=== PATIENT | female | born 1970 | race Asian ===

== ENCOUNTER 2023-01-25 11:38 | Emergency (ER) | payer OTHER ==
[2023-01-25] MEDS ORDERED: SODIUM CHLORIDE 0.9% 1,000 ML IV STA (13:57)
[2023-01-25] MEDS ORDERED: HYDROmorphone 1 MG/ML CARPUJECT IVP STA (13:57)
--- NOTE | 2023-01-25 14:05 | ED Physician Documentation ---
History of Present Illness - Stated complaint Stated Complaint: FEMALE , BACK PX - Chief complaint Chief Complaint: Abd Pain - Additonal information Additional information: 52-year-old female presents to the emergency department for evaluation of low back pain, pelvic pain and concerns of possible renal failure/urinary tract infection. This patient was taking a sabbatical in [place] last year when she was diagnosed with endocervical adenocarcinoma. She did receive chemoradiation for this the last time was in September 2022. She did receive vaginal brachytherapy in early October 2022. While in [place] the patient did develop bilateral hydronephrosis. She received bilateral nephrostomy tubes in June 2022. These were removed in October 2022. Subsequently the patient developed a urinary tract infection, fungal septicemia and kidney failure in November 2022. She was hospitalized again in [place] and had a right nephrostomy tube placed. She did see Dr. Aguilar a urologist at [facility] last week. He did recommend capping the nephrostomy tube to trial a voiding. He did schedule nuclear medicine follow-up imaging which is scheduled for next week. On Tuesday, January 23 the patient kept her nephrostomy tube for 5 hours. While capped she began to have increased pain and fullness in her low back and pelvic region and have increased pain therefore she open the Isabel up to drain but the pain has not resolved. She has had no fevers. She was seen by the [facility] oncologist Dr. Fuentes Today who requested she come to the ER to get a urinalysis as well as a bladder scan. Patient reports to me she is concerned that she could have a urinary tract infection or recurrence of her renal failure Review of Systems Constitutional: denies: Fever, Chills Throat: reports: Reviewed and negative Cardiac: reports: Reviewed and negative Respiratory: reports: Reviewed and negative GI: reports: Abdominal Pain, Other (Right-sided nephrostomy tube) : reports: Dysuria Skin: reports: Reviewed and negative PD PAST MEDICAL HISTORY - Past Medical History Past Medical History: Yes Cardiovascular: None Respiratory: None Neuro: None Endocrine/Autoimmune: None GI: None HEALTH POLICY MANAGER: Other : Other HEENT: None Psych: None Musculoskeletal: None Derm: None Other Past Medical History: NEPHROSTOMY TUBE.....INTERNAL VAGINAL RADIATION... - Past Surgical History Past Surgical History: Yes General: Other - Present Medications Home Medications: Ambulatory Orders Medication Instructions Recorded Confirmed Ciprofloxacin HCl [Cipro] 500 mg PO BID #20 tablet 01/25/23 Pyridoxine HCl (Vitamin B6) 25 mg PO DAILY 01/25/23 01/25/23 [Vitamin B-6] Tamsulosin HCl [Flomax] 0.4 mg PO DAILY PM 01/25/23 01/25/23 - Allergies Allergies/Adverse Reactions: Allergies Allergy/AdvReac Type Severity Reaction Status Date / Time cefepime Allergy Anaphylaxis Verified 01/25/23 11:55 erythromycin base Allergy Nausea Verified 01/25/23 11:55 shellfish derived Allergy Anaphylaxis Verified 01/25/23 11:55 surgical silk tape Allergy Hives Uncoded 01/25/23 11:55 - Social History Does the pt smoke?: No Smoking Status: Never smoker Does the pt drink ETOH?: No Does the pt have substance abuse?: No - Immunizations Immunizations are current?: Yes - POLST Patient has POLST: No PD ED PE NORMAL - General General: Alert and oriented X 3, Well developed/nourished. No: No acute distress (Peers uncomfortable and in pain) - HEENT HEENT: Atraumatic, Moist mucous membranes - Neck Neck: Supple, no meningeal sign - Cardiac Cardiac: RRR, No murmur - Respiratory Respiratory: No respiratory distress, Clear bilaterally - Abdomen Abdomen: Normal bowel sounds, Soft. No: Non tender (Tenderness of the suprapubic region. Mild right posterior flank tenderness. Right nephrostomy tube draining clear yellow urine with mild amount of sediment) - Back Back: No CVA TTP - Derm Derm: Normal color, Warm and dry - Extremities Extremities: No deformity - Neuro Neuro: Alert and oriented X 3, senior scheduler 2-12 intact Eye Opening: Spontaneous Motor: Obeys Commands Verbal: Oriented GCS Score: 15 - Psych Psych: Normal mood Results - Vitals Vitals: Vital Signs - 24 hr 01/25/23 01/25/23 01/25/23 11:53 13:15 13:18 Temperature 36.6 C Heart Rate 89 73 Respiratory 16 18 19 Rate Blood Pressure 109/70 100/73 O2 Saturation 100 100 01/25/23 01/25/23 01/25/23 14:09 14:30 15:27 Temperature Heart Rate 72 71 Respiratory 17 17 17 Rate Blood Pressure 108/69 O2 Saturation 100 100 01/25/23 01/25/2301/25/23 15:42 16:33 17:00 Temperature Heart Rate 88 89 90 Respiratory 17 19 17 Rate Blood Pressure 114/72 123/78 123/78 O2 Saturation 100 100 100 01/25/23 17:44 Temperature Heart Rate Respiratory 16 Rate Blood Pressure O2 Saturation Oxygen O2 Source Room air - Labs Labs: Laboratory Tests 01/25/23 01/25/23 01/25/23 13:45 14:20 14:26 WBC 4.5 L RBC 2.70 L Hgb 8.5 L Hct 26.4 L MCV 97.8 MCH 31.5 H MCHC 32.2 RDW 14.9 Plt Count 206 MPV 10.1 Neut # (Auto) 3.2 Lymph # (Auto) 0.5 L [place] # (Auto) 0.5 Eos # (Auto) 0.3 Baso # (Auto) 0.0 Absolute Nucleated RBC 0.00 Nucleated RBC % 0.0 Sodium 140 Potassium 4.0 Chloride 106 Carbon Dioxide 23 Anion Gap 11.0 BUN 22 H Creatinine 1.6 H Estimated GFR (MDRD) 34 L Glucose 91 Calcium 9.0 Total Bilirubin 0.3 AST 18 ALT 15 Alkaline Phosphatase 69 Total Protein 6.6 L Albumin 3.2 Globulin 3.4 Albumin/Globulin Ratio 0.9 L Lipase 53 H Urine Color YELLOW Urine Clarity SL. CLOUDY Urine pH 6.0 Ur Specific [place] 1.025 Urine Protein 100 H Urine Glucose (UA) NEGATIVE Urine Ketones NEGATIVE Urine Occult Blood MODERATE H Urine Nitrite POSITIVE H Urine Bilirubin NEGATIVE Urine Urobilinogen 0.2 (NORMAL) Ur Leukocyte Esterase LARGE H Urine RBC 6-10 H Urine WBC >25 H Urine WBC Clumps PRESENT Ur Squamous Epith Cells RARE Squamous Urine Bacteria Moderate H Ur Microscopic Review INDICATED Urine Culture Comments INDICATED - Rads (name of study) CT abd w Relevant Findings:: Final report received (Expected positioning of the right nephrostomy tube and bilateral ureteral stents. No CT evidence of bowel nephritis. Appendix not seen. No evidence of appendicitis) PD Medical Decision Making - ED course Complexity details: reviewed results, re-evaluated patient, considered differential, d/w patient ED course: 52-year-old female who has a history of endocervical cancer last receiving chemotherapy in September 2022 and radiation in October 2022 presents to the emergency department for evaluation of low back pain, right flank pain and dysuria. She does have a history of bilateral hydronephrosis. She does have a right nephrostomy tube in place as well as bilateral ureter stents. She was seen last week by Dr. Aguilar, urology associate with [facility]. She is scheduled to have urology follow-up and repeat scanning this upcoming week. After being seen last week he did recommend that she try capping her nephrostomy tube to see if she could void via her bladder. She only tolerated the capping for about 5 hours before she developed the pain. She was seen today by [place] [facility] [place]cologist who recommended she come to the ER to be evaluated for urinary tract infection. Initially patient had no residual on bladder scan. She was afebrile without hypotension or tachycardia. Did obtain a CBC, electrolytes and urinalysis. She has no leukocytosis. She is noted to be modestly anemic with a hemoglobin of 8.5 but does not meet threshold criteria. Patient reports to me she has been told she has anemia in the past and has required blood transfusions for this. Her renal function shows some mild acute kidney injury. BUN is 22 and creatinine is 1.6. She does report a history of kidney failure in November due to hydronephrosis. This may be acute on chronic. Her urinalysis was consistent with infection. Subsequently a CT of the abdomen was completed. There was expected positioning of the right nephrostomy and bilateral ureter stents. There was no CT evidence for nephritis. Subsequently attempted to speak with Dr. Aguilar her urologist who was unfortunately in surgery. Subsequently I did speak with CHRISTIANE Jackson associate with Dr. Aguilar and urology clinic. I discussed with him my concern that patient may require transfer giving indwelling hardware but he reported that as she was hemodynamically stable without fever or leukocytosis they would not consider removing the hardware and replacing it until she had had antibiotics. He felt she was safe and appropriate for outpatient treatment therefore we will start the patient on Cipro 500 mg twice daily for the next 10 days. I discussed this plan with the patient and her partner at the bedside and they are comfortable with the plan to be treated as an outpatient. The usual emergent return precautions for worsening symptoms were discussed. Departure - Departure Disposition: 01 Home, Self Care Clinical Impression: Ureteral stent present, Acute kidney injury, History of cervical cancer, History of hydronephrosis Urinary tract infection Qualifiers: Urinary tract infection type: site unspecified Hematuria presence: without hematuria Qualified Code(s): N39.0 - Urinary tract infection, site not specified Prescriptions: Ciprofloxacin HCl [Cipro] 500 mg PO BID #20 tablet Comments: Adriana golden came to the emergency department because you have been having some low back pain and right flank pain. You do have a history of hydronephrosis as well as bilateral ureter stents and a right nephrostomy tube in place. Your urine today is consistent with infection. I did speak with CHRISTIANE Sneed, working with your urologist Dr. Aguilar And he recommended starting you on ciprofloxacin. Please call the urology clinic to discuss this ED visit and arrange sooner follow-up. If you find that despite taking the antibiotics you are having increase or wors ening low back pain, develop any fevers, have nausea or vomiting you must return immediately to the emergency department. It is important you stay well-hydrated and drink plenty of water. Your labs today do show that you are anemic with a hemoglobin of 8.5 however you do not meet the threshold for transfusion. Your BUN was 22 and your creatinine was 1.6. Based on your history I suspect that this may be your baseline.
[2023-01-25 14:06] LABS: BILIRUBIN,URINE NEGATIVE (NEGATIVE); CLARITY,URINE SL. CLOUDY (CLEAR); GLUCOSE, URINE (UA) NEGATIVE (NEGATIVE); KETONES,URINE (UA) NEGATIVE (NEGATIVE); LEUKOCYTE ESTERASE, URINE LARGE (NEGATIVE); NITRITE,URINE POSITIVE (NEGATIVE); OCCULT BLOOD,URINE MODERATE (NEGATIVE); PROTEIN,URINE 100 mg/dL (NEGATIVE); UROBILINOGEN,URINE 0.2 (NORMAL) E.U./dL (NORMAL)
[2023-01-25] MEDS ORDERED: iohexoL-300 100 ML VIAL ONE ×2 (14:13→14:29)
[2023-01-25 14:30] LABS: BACTERIA,URINE Moderate /HPF (None Seen); SQUAMOUS EPITHELIAL CELL,UR RARE Squamous (<= Few); WBC CLUMPS,URINE PRESENT; WBC,URINE >25 /HPF (0-5)
[2023-01-25 14:33] LABS: BASOPHILS % (AUTO) 0.7 %; EOSINOPHILS # (AUTO) 0.3 10^3/uL (0.0-0.7); EOSINOPHILS % (AUTO) 7.3 %; HCT - HEMATOCRIT 26.4 % (37.0-47.0); HGB - HEMOGLOBIN 8.5 g/dL (12.0-16.0); LYMPHOCYTES # (AUTO) 0.5 10^3/uL (1.5-3.5); LYMPHOCYTES % (AUTO) 10.6 %; MEAN CORPUSCULAR HEMOGLOBIN 31.5 pg (27.0-31.0); MEAN CORPUSCULAR HGB CONC 32.2 g/dL (32.0-36.0); MEAN CORPUSCULAR VOLUME 97.8 fL (81.0-99.0); MEAN PLATELET VOLUME 10.1 fL (7.9-10.8); MONOCYTES # (AUTO) 0.5 10^3/uL (0.0-1.0); MONOCYTES % (AUTO) 10.2 %; NEUTROPHILS # (AUTO) 3.2 10^3/uL (1.5-6.6); PLT - PLATELET COUNT 206 10^3/uL (130-450); RED CELL DISTRIBUTION WIDTH 14.9 % (12.0-15.0); WHITE BLOOD COUNT 4.5 x10^3/uL (4.8-10.8)
[2023-01-25] MEDS ORDERED: CIPROFLOXACIN 400 MG/200 ML 400 MG/200 ML BAG IV STA (14:44)
[2023-01-25 14:51] LABS: ALBUMIN 3.2 g/dL (3.2-5.5); ALBUMIN/GLOBULIN RATIO 0.9 (1.0-2.2); BILIRUBIN,TOTAL 0.3 mg/dL (0.2-1.0); CREATININE 1.6 mg/dL (0.4-1.0); TOTAL PROTEIN 6.6 g/dL (6.7-8.2)
[2023-01-25] MEDS ORDERED: KETOROLAC 30 MG/ML VIAL IVP STA (15:11)
--- NOTE | 2023-01-25 15:55 | CT Report ---
PROCEDURE: ABDOMEN/PELVIS W INDICATIONS: right nephrostomy tube; ? pyelo CONTRAST: 100ml Omnipaque 300 TECHNIQUE: After the administration of intravenous contrast, 5 mm thick sections acquired from the diaphragms to the symphysis. 5 mm thick coronal and sagittal reformats were acquired. For radiation dose reducti on, the following was used: automated exposure control, adjustment of mA and/or kV according to jean paul ent size. COMPARISON: None FINDINGS: Image quality: Excellent. Lung bases and heart: Unremarkable. Liver: No solid mass. Gallbladder and biliary tree: The gallbladder is contracted. No biliary ductal dilatation. Spleen: No splenomegaly. Pancreas: No pancreatic ductal dilation. Adrenals: No adrenal nodule. Kidneys and ureters: No hydronephrosis. Moderate left renal atrophy. No renal cystic lesion which req uires follow up. No solid mass. Right nephrostomy is appropriately positioned. Bilateral ureteral marilee nts are appropriately positioned. Bowel and peritoneum: No bowel distension. No pathologic free fluid. Appendix not seen. No evidence o f appendicitis. Lymph nodes: No central or retroperitoneal adenopathy. Vessels: No infrarenal aortic aneurysm. PELVIS Reproductive organs: Unremarkable. Bladder: No abnormal wall thickening, accounting for underdistension. Pelvic lymph nodes: No pelvic adenopathy by size criteria. Bones: No aggressive osseous abnormality. Other: No significant ventral or inguinal hernia. IMPRESSION: 1. Expected positioning of right nephrostomy and bilateral ureteral stents. 2. No CT evidence of bowel nephritis. Correlation with urinalysis is recommended. 3. Appendix not seen. No evidence of appendicitis. Reviewed by: Eamon Oconnell MD on 01/25/2023 3:54 PM PDT Approved by: Eamon Oconnell MD on 01/25/2023 3:54 PM PDT Station ID: [id number]
[2023-01-25] MEDS ORDERED: iohexoL-300 100 ML VIAL IVP ONE (16:49)
[2023-01-25 18:06] VITALS: BP 101/61
== END 2023-01-25 18:19 | disposition home or self-care (01) ==
LOC: ED 11:38
DX: N39.0 Urinary tract infection, site not specified (principal); Z96.0 Presence of urogenital implants; Z86.03 Personal history of neoplasm of uncertain behavior
CPT/HCPCS: 36415; 51798; 74177; 80053; 81001; 83690; 85025; 87040; 87086; 96365; 96375; 99284; J1170; Q9967; 81003; 87077; 87181

== ENCOUNTER 2023-05-05 17:17 | Outpatient (CLI) | payer OTHER | END 2023-05-05 23:59 | disposition home or self-care (01) | LOC: LAB 17:17 | PROVIDERS: ATTEND Physician Assistant Medical | DX: N39.0 Urinary tract infection, site not specified (principal) | CPT/HCPCS: 87086 ==

== ENCOUNTER 2023-05-06 12:18 | Outpatient (CLI) | payer OTHER ==
[2023-05-06 14:53] LABS: ALBUMIN/GLOBULIN RATIO 1.4 (1.0-2.2); BILIRUBIN,TOTAL 0.4 mg/dL (0.2-1.0); CALCIUM 9.5 mg/dL (8.5-10.3); CREATININE 1.7 mg/dL (0.6-1.3); POTASSIUM 4.8 mmol/L (3.5-4.5); TOTAL PROTEIN 6.9 g/dL (6.4-8.9)
== END 2023-05-06 12:19 | disposition home or self-care (01) ==
LOC: LAB.S 12:18
PROVIDERS: ATTEND Physician Assistant Medical
DX: R25.2 Cramp and spasm (principal)
CPT/HCPCS: 36415; 80053; 83735

== ENCOUNTER 2023-05-16 10:10 | Outpatient (CLI) | payer OTHER | END 2023-05-16 10:11 | disposition home or self-care (01) | LOC: LAB.S 10:10 | PROVIDERS: ATTEND Student in an Organized Health Care Education/Training Program | DX: N13.30 Unspecified hydronephrosis (principal); R10.31 Right lower quadrant pain | CPT/HCPCS: 36415; 80048; 87077; 87086; 87181 ==

== ENCOUNTER 2023-05-16 13:21 | Emergency (ER) | payer OTHER ==
[2023-05-16 13:49] LABS: BILIRUBIN,URINE NEGATIVE (NEGATIVE); GLUCOSE, URINE (UA) NEGATIVE (NEGATIVE); KETONES,URINE (UA) NEGATIVE (NEGATIVE); LEUKOCYTE ESTERASE, URINE LARGE (NEGATIVE); NITRITE,URINE POSITIVE (NEGATIVE); OCCULT BLOOD,URINE SMALL (NEGATIVE); PH,URINE 5.5 PH (5.0-7.5); PROTEIN,URINE 100 mg/dL (NEGATIVE); UROBILINOGEN,URINE 1 (NORMAL) E.U./dL (NORMAL)
[2023-05-16 13:52] LABS: BASOPHILS % (AUTO) 0.6 %; EOSINOPHILS # (AUTO) 0.2 10^3/uL (0.0-0.7); EOSINOPHILS % (AUTO) 4.1 %; HCT - HEMATOCRIT 30.2 % (37.0-47.0); HGB - HEMOGLOBIN 9.7 g/dL (12.0-16.0); LYMPHOCYTES # (AUTO) 0.7 10^3/uL (1.5-3.5); LYMPHOCYTES % (AUTO) 13.2 %; MEAN CORPUSCULAR HEMOGLOBIN 34.2 pg (27.0-31.0); MEAN CORPUSCULAR HGB CONC 32.1 g/dL (32.0-36.0); MEAN CORPUSCULAR VOLUME 106.3 fL (81.0-99.0); MEAN PLATELET VOLUME 8.9 fL (7.9-10.8); MONOCYTES # (AUTO) 0.4 10^3/uL (0.0-1.0); MONOCYTES % (AUTO) 7.6 %; NEUTROPHILS # (AUTO) 3.8 10^3/uL (1.5-6.6); NEUTROPHILS % (AUTO) 74.1 %; PLT - PLATELET COUNT 279 10^3/uL (130-450); RED BLOOD COUNT 2.84 10^6/uL (4.20-5.40); RED CELL DISTRIBUTION WIDTH 14.3 % (12.0-15.0); WHITE BLOOD COUNT 5.1 x10^3/uL (4.8-10.8)
[2023-05-16 13:55] LABS: BACTERIA,URINE Few /HPF (None Seen); CLARITY,URINE SL. CLOUDY (CLEAR); RBC,URINE 0-5 /HPF (0-5); SQUAMOUS EPITHELIAL CELL,UR FEW Squamous (<= Few); WBC,URINE >25 /HPF (0-5)
[2023-05-16 14:14] LABS: ALBUMIN 4.3 g/dL (3.2-5.5); ALBUMIN/GLOBULIN RATIO 1.6 (1.0-2.2); BILIRUBIN,TOTAL 0.6 mg/dL (0.2-1.0); CALCIUM 9.7 mg/dL (8.5-10.3); CREATININE 1.5 mg/dL (0.6-1.3); POTASSIUM 3.8 mmol/L (3.5-4.5)
--- OUTSIDE RECORDS SUMMARY | 2023-05-16 14:26 | EXTERNAL MEDICAL SUMMARY RPT | Continuity of Care Document ---
Author Name Unknown Address [address] [place] [address] Phone Organization [facility] Address [address] [place] [address] Phone Care Team Providers Care Tenter Name Role Phone Unavailable Unavailable Unavailable Mari Mendez, Ryan Unavailable Unavailable Nurse, Mark[facility] Unavailable Unavailab rosanna Ryder Pa-C, Mercedes Unavailable Unavailable José Webber, Jihan Unavailable Unavailable Medications date description facility 2023-04-12 00:00 [facility]ansetron [facility] [place] 2023-04-12 00:00 ondansetron [facility] [place] 2023-04-12 00:00 ondansetron [facility] [place] 2023-04-12 00:00 ondansetron [facility] [place] 2023-04-09 00:00 oxycodone [facility] 2023-04-11 00:00 oxycodone [facility] 2023-04-12 00:00 oxycodone [facility] 2023-05-07 00:00 oxycodone [facility] 2023-05-09 00:00 oxycodone [facility] 2023-05-09 00:00 oxycodone [facility] 2023-04-09 00:00 lorazepam [facility] 2023-04-11 00:00 lorazepam [facility] 2023-04-12 00:00 lorazepam [facility] 2023-05-07 00:00 lorazepam [facility] 2023-05-09 00:00 lorazepam [facility] [place] 2023-05-09 00:00 lorazepam [facility] 2023-04-12 00:00 ciprofloxacin hcl [facility] 2023-04-12 00:00 ciprofloxacin hcl [facility] 2023-04-12 00:00 ciprofloxacin hcl [facility] 2023-04-12 00:00 ciprofloxacin hcl [facility] 2023-04-12 00:00 ondansetron [facility] [place] 2023-04-12 00:00 ondansetron [facility] [place] 2023-04-12 00:00 ondansetron [facility] [place] 2023-04-12 00:00 ondansetron [facility] [place] 2023-04-09 00:00 oxycodone [facility] [place] 2023-04-11 00:00 oxycodone [facility] [place] 2023-04-12 00:00 oxycodone [facility] [place] 2023-05-07 00:00 oxycodone [facility] [place] 2023-05-09 00:00 oxycodone [facility] 2023-05-09 00:00 oxycodone [facility] 2023-04-09 00:00 phenazopyridine [facility] 2023-04-11 00:00 phenazopyridine [facility] 2023-04-12 00:00 phenazopyridine [facility] 2023-05-07 00:00 phenazopyridine [facility] 2023-05-09 00:00 phenazopyridine [facility] [place] 2023-05-09 00:00 phenazopyridine [facility] [place] 2023-04-09 00:00 lorazepam [facility] [place] 2023-04-11 00:00 lorazepam [facility] [place] 2023-04-12 00:00 lorazepam [facility] 2023-05-07 00:00 lorazepam [facility] 2023-05-09 00:00 lorazepam [facility] 2023-05-09 00:00 lorazepam [facility] 2023-05-07 00:00 estradiol-norethindrone acet [facility] [place] 2023-05-09 00:00 estradiol-norethindrone acet [facility] 2023-05-09 00:00 estradiol-norethindrone acet [facility] [place] 2023-04-09 00:00 tamsulosin [facility] [place] 2023-04-11 00:00 tamsulosin [facility] 2023-04-12 00:00 tamsulosin [facility] 2023-05-07 00:00 tamsulosin [facility] 2023-05-09 00:00 tamsulosin [facility] 2023-05-09 00:00 tamsulosin [facility] 2023-04-09 00:00 phenazopyridine [facility] 2023-04-11 00:00 phenazopyridine [facility] 2023-04-12 00:00 phenazopyridine [facility] [place] 2023-05-07 00:00 phenazopyridine [facility] 2023-05-09 00:00 phenazopyridine [facility] [place] 2023-05-09 00:00 phenazopyridine [facility] [place] 2023-04-09 00:00 lorazepam [facility] [place] 2023-04-11 00:00 lorazepam [facility] [place] 2023-04-12 00:00 lorazepam [facility] [place] 2023-05-07 00:00 lorazepam [facility] [place] 2023-05-09 00:00 lorazepam [facility] [place] 2023-05-09 00:00 lorazepam [facility] [place] 2023-04-12 00:00 ciprofloxacin hcl [facility] [place] 2023-04-12 00:00 ciprofloxacin hcl [facility] [place] 2023-04-12 00:00 ciprofloxacin hcl [facility] [place] 2023-04-12 00:00 ciprofloxacin hcl [facility] [place] 2023-05-07 00:00 estradiol-norethindrone acet [facility] [place] 2023-05-09 00:00 estradiol-norethindrone acet [facility] [place] 2023-05-09 00:00 estradiol-norethindrone acet [facility] [place] 2023-04-09 00:00 oxycodone [facility] [place] 2023-04-11 00:00 oxycodone [facility] [place] 2023-04-12 00:00 oxycodone [facility] [place] 2023-05-07 00:00 oxycodone [facility] [place] 2023-05-09 00:00 oxycodone [facility] [place] 2023-05-09 00:00 oxycodone [facility] [place] 2023-04-12 00:00 ciprofloxacin hcl [facility] [place] 2023-04-12 00:00 ciprofloxacin hcl [facility] [place] 2023-04-12 00:00 ciprofloxacin hcl [facility] [place] 2023-04-12 00:00 ciprofloxacin hcl [facility] [place] 2023-04-12 00:00 ondansetron [facility] 2023-04-12 00:00 ondansetron [facility] 2023-04-12 00:00 ondansetron [facility] 2023-04-12 00:00 ondansetron [facility] 2023-04-12 00:00 ciprofloxacin hcl [facility] 2023-04-12 00:00 ciprofloxacin hcl [facility] [place] 2023-04-12 00:00 ciprofloxacin hcl [facility] 2023-04-12 00:00 ciprofloxacin hcl [facility] 2023-04-09 00:00 oxybutynin chloride [facility] [place] 2023-04-11 00:00 oxybutynin chloride [facility] [place] 2023-04-12 00:00 oxybutynin chloride [facility] [place] 2023-05-07 00:00 oxybutynin chloride [facility] [place] 2023-05-09 00:00 oxybutynin chloride [facility] [place] 2023-05-09 00:00 oxybutynin chloride [facility] [place] 2023-04-09 00:00 phenazopyridine [facility] [place] 2023-04-11 00:00 phenazopyridine [facility] 2023-04-12 00:00 phenazopyridine [facility] 2023-05-07 00:00 phenazopyridine [facility] 2023-05-09 00:00 phenazopyridine [facility] [place] 2023-05-09 00:00 phenazopyridine [facility] 2023-04-09 00:00 tamsulosin [facility] [place] 2023-04-11 00:00 tamsulosin [facility] [place] 2023-04-12 00:00 tamsulosin [facility] [place] 2023-05-07 00:00 tamsulosin [facility] [place] 2023-05-09 00:00 tamsulosin [facility] [place] 2023-05-09 00:00 tamsulosin [facility] [place] 2023-04-09 00:00 lorazepam [facility] [place] 2023-04-11 00:00 lorazepam [facility] [place] 2023-04-12 00:00 lorazepam [facility] [place] 2023-05-07 00:00 lorazepam [facility] [place] 2023-05-09 00:00 lorazepam [facility] [place] 2023-05-09 00:00 lorazepam [facility] [place] 2023-05-07 00:00 estradiol-norethindrone acet [facility] 2023-05-09 00:00 estradiol-norethindrone acet [facility] 2023-05-09 00:00 estradiol-norethindrone acet [facility] [place] 2023-04-09 00:00 oxybutynin chloride [facility] 2023-04-11 00:00 oxybutynin chloride [facility] [place] 2023-04-12 00:00 oxybutynin chloride [facility] 2023-05-07 00:00 oxybutynin chloride [facility] [place] 2023-05-09 00:00 oxybutynin chloride [facility] 2023-05-09 00:00 oxybutynin chloride [facility] [place] 2023-04-09 00:00 tamsulosin [facility] 2023-04-11 00:00 tamsulosin [facility] 2023-04-12 00:00 tamsulosin [facility] 2023-05-07 00:00 tamsulosin [facility] 2023-05-09 00:00 tamsulosin [facility] 2023-05-09 00:00 tamsulosin [facility] 2023-04-12 00:00 ondansetron [facility] [place] 2023-04-12 00:00 ondansetron [facility] 2023-04-12 00:00 ondansetron [facility] 2023-04-12 00:00 ondansetron [facility] [place] 2023-04-09 00:00 oxycodone [facility] 2023-04-11 00:00 oxycodone [facility] 2023-04-12 00:00 oxycodone [facility] [place] 2023-05-07 00:00 oxycodone [facility] 2023-05-09 00:00 oxycodone [facility] 2023-05-09 00:00 oxycodone [facility] [place] 2023-04-09 00:00 phenazopyridine [facility] [place] 2023-04-11 00:00 phenazopyridine [facility] 2023-04-12 00:00 phenazopyridine [facility] [place] 2023-05-07 00:00 phenazopyridine [facility] 2023-05-09 00:00 phenazopyridine [facility] 2023-05-09 00:00 phenazopyridine [facility] 2023-05-07 00:00 estradiol-norethindrone acet [facility] [place] 2023-05-09 00:00 estradiol-norethindrone acet [facility] 2023-05-09 00:00 estradiol-norethindrone acet [facility] [place] 2023-04-09 00:00 oxybutynin chloride [facility] [place] 2023-04-11 00:00 oxybutynin chloride [facility] [place] 2023-04-12 00:00 oxybutynin chloride [facility] [place] 2023-05-07 00:00 oxybutynin chloride [facility] [place] 2023-05-09 00:00 oxybutynin chloride [facility] 2023-05-09 00:00 oxybutynin chloride [facility] [place] 2023-04-09 00:00 oxybutynin chloride [facility] [place] 2023-04-11 00:00 oxybutynin chloride [facility] [place] 2023-04-12 00:00 oxybutynin chloride [facility] [place] 2023-05-07 00:00 oxybutynin chloride [facility] [place] 2023-05-09 00:00 oxybutynin chloride [facility] [place] 2023-05-09 00:00 oxybutynin chloride [facility] [place] 2023-04-09 00:00 tamsulosin [facility] [place] 2023-04-11 00:00 tamsulosin [facility] [place] 2023-04-12 00:00 tamsulosin [facility] [place] 2023-05-07 00:00 tamsulosin [facility] [place] 2023-05-09 00:00 tamsulosin [facility] [place] 2023-05-09 00:00 tamsulosin [facility] [place] Problems date description facility 2023-04-08 00:00 Spasm of bladder [facility] [place] 2023-04-08 00:00 Spasm of bladder [facility] [place] 2023-04-08 00:00 Spasm of bladder [facility] [place] 2023-04-08 00:00 Spasm of bladder [facility] [place] 2023-04-08 00:00 Other specified diso rders of bladder [facility] [place] 2023-04-08 00:00 Other specified diso rders of bladder [facility] [place] 2023-04-08 00:00 Other specified diso rders of bladder [facility] [place] 2023-04-08 00:00 Other specified diso rders of bladder [facility] [place] 2023-04-08 00:00 Dysuria [facility] [place] 2023-04-08 00:00 Dysuria [facility] [place] 2023-04-08 00:00 Dysuria [facility] [place] 2023-04-08 00:00 Dysuria [facility] [place] 2023-05-05 00:00 Cramp [facility] [place] 2023-05-05 00:00 Cramp [facility] [place] 2023-05-05 00:00 Cramp [facility] [place] 2023-05-05 00:00 Cramp of limb [facility] [place] 2023-05-05 00:00 Cramp of limb [facility] [place] 2023-05-05 00:00 Cramp of limb [facility] [place] 2023-05-05 00:00 Cramp and spasm [facility] [place] 2023-05-05 00:00 Cramp and spasm [facility] [place] 2023-05-05 00:00 Cramp and spasm [facility] [place] Procedures date description facility 2023-04-08 00:00 Visit Code Hold [facility] [place] 2023-04-08 00:00 Visit Code Hold [facility] [place] 2023-04-08 00:00 Visit Code Hold [facility] [place] 2023-04-08 00:00 Visit Code Hold [facility] [place] 2023-05-05 00:00 Visit Code Hold [facility] [place] 2023-05-05 00:00 Visit Code Hold [facility] [place] 2023-05-05 00:00 Visit Code Hold [facility] [place] 2023-05-05 00:00 COMPREHENSIVE METABOLIC PANEL W alk[facility] [place] 2023-05-05 00:00 COMPREHENSIVE METABOLIC PANEL W alk[facility] [place] 2023-05-05 00:00 COMPREHENSIVE METABOLIC PANEL [facility] [place] 2023-04-08 00:00 POC URINALYSIS DIP [facility] [place] 2023-04-08 00:00 POC URINALYSIS DIP [facility] [place] 2023-04-08 00:00 POC URINALYSIS DIP [facility] [place] 2023-04-08 00:00 POC URINALYSIS DIP [facility] [place] 2023-05-05 00:00 POC URINALYSIS DIP [facility] [place] 2023-05-05 00:00 POC URINALYSIS DIP [facility] [place] 2023-05-05 00:00 POC URINALYSIS DIP [facility] [place] 2023-04-08 00:00 Urinalysis with Micr oscopic Exam, Culture in Indicated [facility] [place] 2023-04-08 00:00 Urinalysis with Micr oscopic Exam, Culture in Indicated [facility] [place] 2023-04-08 00:00 Urinalysis with Micr oscopic Exam, Culture in Indicated [facility] [place] 2023-04-08 00:00 Urine C&S [facility] [place] 2023-04-08 00:00 Urine C&S [facility] [place] 2023-04-08 00:00 Urine C&S [facility] [place] 2023-05-05 00:00 Urine C&S [facility] [place] 2023-05-05 00:00 Urine C&S [facility] [place] 2023-05-05 00:00 Urine C&S [facility] [place] 2023-05-05 00:00 Magnesium [facility] [place] 2023-05-05 00:00 Magnesium [facility] [place] 2023-05-05 00:00 Magnesium [facility] [place] Results/Labs test date facility value unit notes Social History date description facility 2023-04-08 00:00 Never smoker [facility] [place] 2023-04-08 00:00 Never smoker [facility] [place] 2023-04-08 00:00 Never smoker [facility] [place] 2023-04-08 00:00 Never smoker [facility] [place] 2023-04-09 00:00 Unknown if ever smoked [facility] [place] Vital Signs date measurement value units 2023-04-08 00:00 BP_diastolic 65 mmHg 2023-04-08 00:00 BP_systolic 104 mmHg 2023-04-08 00:00 heart_rate 75 /min 2023-04-08 00:00 respiration_rate 14 /min 2023-04-08 00:00 temperature_metric 36.44 C 2023-04-08 00:00 temperature_standard 97.6 F 2023-04-08 00:00 weight_metric 57.21 kg 2023-04-08 00:00 weight_standard 126.13 lb
[2023-05-16] MEDS ORDERED: MORPHINE 2 MG/ML CARPUJECT IVP STA (14:46)
[2023-05-16] MEDS ORDERED: SODIUM CHLORIDE 0.9% 1,000 ML IV STA (14:47)
--- NOTE | 2023-05-16 14:48 | ED Physician Documentation ---
PD HPI ABD PAIN - Stated complaint Stated Complaint: ABD PX - Chief complaint Chief Complaint: Abd Pain - History obtained from History obtained from: Patient - Additional information Additional information: 52-year-old female with history of stage III ovarian cancer status post chemo and radiation, intermission for 2 months presents by private vehicle from home for 24 hours of right lower quadrant pain. Patient states that she has had intermittent abdominal pain for 1 month, however it had markedly worsened in the last 24 hours. Patient does have history of bilateral indwelling ureteral stent s due to ureteral obstruction when she had cancer. She is working with her urologist on possible removal of the stents. Review of Systems Constitutional: denies: Fever, Chills Cardiac: denies: Chest pain / pressure, Palpitations, Calf pain Respiratory: denies: Dyspnea, Cough, Wheezing GI: reports: Abdominal Pain. 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: Other - Present Medications Home Medications: Ambulatory Orders Medication Instructions Recorded Confirmed Pyridoxine HCl (Vitamin B6) 25 mg PO DAILY 01/25/23 05/24/23 [Vitamin B-6] Ciprofloxacin HCl 1 tablet PO BID 10 Days #28 tablet 05/16/23 05/24/23 HYDROcod/ACETAM 5/325 [[place] 5/325] 1 - 2 tablet PO Q6H PRN #14 tablet 05/16/23 05/24/23 Oxybutynin [Oxytrol For Women] 1 each TD ONCE 05/24/23 05/24/23 Phenazopyridine [Pyridium] 100 mg PO DAILY 05/24/23 05/24/23 Tamsulosin [Flomax] 1 cap PO DAILY 05/24/23 05/24/23 - Allergies Allergies/Adverse Reactions: Allergies Allergy/AdvReac Type Severity Reaction Status Date / Time cefepime Allergy Anaphylaxis Verified 05/16/23 13:32 coconut Allergy Unknown Verified 05/16/23 13:32 erythromycin base Allergy Nausea Verified 05/16/23 13:32 lamotrigine [From Lamictal] Allergy Rash Verified 05/16/23 13:32 shellfish derived Allergy Anaphylaxis Verified 05/16/23 13:32 surgical silk tape Allergy Hives Uncoded 05/16/23 13:32 - Social History Does the pt smoke?: No Smoking Status: Never smoker Does the pt drink ETOH?: No Does the pt have substance abuse?: No - Immunizations Immunizations are current?: Yes - POLST Patient has POLST: No PD ED PE NORMAL - Vitals Vital signs reviewed: Yes - General General: Alert and oriented X 3, Well developed/nourished, Other (in pain, uncomfortable) - Neck Neck: Supple, no meningeal sign, No bony TTP - Cardiac Cardiac: RRR, No murmur, Strong equal pulses - Respiratory Respiratory: No respiratory distress, Clear bilaterally - Abdomen Abdomen: Soft, Non distended, Other (RLQ tenderness to deep palpation) - Back Back: No spinal TTP - Derm Derm: Normal color, Warm and dry, No rash - Extremities Extremities: No deformity, No tenderness to palpate, Normal ROM s pain, No edema - Neuro Neuro: Alert and oriented X 3, 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, No motor deficit, Normal speech - Psych Psych: Normal mood, Normal affect Results - Vitals Vitals: Oxygen O2 Source Room air - Labs Labs: Laboratory Tests 05/16/23 05/16/23 05/16/23 13:42 13:47 13:47 WBC 5.1 RBC 2.84 L Hgb 9.7 L Hct 30.2 L MCV 106.3 H MCH 34.2 H MCHC 32.1 RDW 14.3 Plt Count 279 MPV 8.9 Neut # (Auto) 3.8 Lymph # (Auto) 0.7 L [place] # (Auto) 0.4 Eos # (Auto) 0.2 Baso # (Auto) 0.0 Absolute Nucleated RBC 0.00 Nucleated RBC % 0.0 Sodium 139 Potassium 3.8 Chloride 108 Carbon Dioxide 26 Anion Gap 5.0 L BUN 23 H Creatinine 1.5 H Estimated GFR (MDRD) 36 L Glucose 97 Calcium 9.7 Total Bilirubin 0.6 AST 13 ALT 9 L Alkaline Phosphatase 76 Total Protein 7.0 Albumin 4.3 Globulin 2.7 Albumin/Globulin Ratio 1.6 Lipase 25 Urine Color ORANGE Urine Clarity SL. CLOUDY Urine pH 5.5 Ur Specific [place] 1.015 Urine Protein 100 H Urine Glucose (UA) NEGATIVE Urine Ketones NEGATIVE Urine Occult Blood SMALL H Urine Nitrite POSITIVE H Urine Bilirubin NEGATIVE Urine Urobilinogen 1 (NORMAL) Ur Leukocyte Esterase LARGE H Urine RBC 0-5 Urine WBC >25 H Ur Squamous Epith Cells FEW Squamous Urine Bacteria Few Ur Microscopic Review INDICATED Urine Culture Comments INDICATED Procedures - General procedure General procedure: Ultrasound-guided IV access placed by myself. Cleaned with ChloraPrep. 22- gauge IV advanced with ultrasound guidance into left AC. Secured with tape and occlusive dressing. Patient tolerated without complication. 2 attempts. PD Medical Decision Making - ED course Complexity details: reviewed old records, reviewed results, re-evaluated patient, considered differential, d/w patient, d/w family ED course: Chronically unwell appearing but not acutely toxic patient presenting for abdominal pain with history of ureteral stents as well as pelvic cancer. Patient does have right lower quadrant tenderness to deep palpation. Will obtain labs, CT imaging, will give pain medication and IV hydration. Difficult IV access, ultrasound-guided IV placed in left AC by myself. Laboratory work is reviewed, patient has chronic kidney disease that is at his baseline. Urinalysis is significant for infection. Patient is allergic to cephalosporins, will give IV Levaquin. CT shows hydronephrosis and what appears to be reflux beside the ureteral stents concerning for possible failure. Patient states that she has chronic back pain that is no different than usual and she is in the process of talking with her urologist about getting her stents removed. No obvious cause of the patient's right-sided abdominal pain found on CT imaging. Attempted to reach out to the patient's urologist, however all attempts at reaching his office were unsuccessful. I discussed the patient's case with our on-call urologist, who stated that the findings on CT of hydronephrosis were typically seen with stent malfunction, however since the patient's kidney function is at its baseline and her pain is well controlled she should be able to follow-up on an outpatient basis for stent removal. Recommended treating urinary tract infection with 2 weeks of antibiotics. He is happy to see her in clinic or patient can follow-up with her usual urologist. I discussed results of all labs and imaging with patient and partner at bedside as well as urology recommendations. They will call first thing tomorrow morning for urology follow-up and will work on getting records sent over to his office. Pain medications and antibiotics sent to pharmacy of choice. Departure - Departure Disposition: Home, Self Care Clinical Impression: Complicated UTI (urinary tract infection), Retained ureteral stent Condition: Stable Instructions: Abdominal Pain, ED UTI Cystitis Female Prescriptions: Ciprofloxacin HCl 1 tablet PO BID 10 Days #28 tablet HYDROcod/ACETAM 5/325 [[place] 5/325] 1 - 2 tablet PO Q6H PRN #14 tablet PRN Reason: Pain Forms: PCP List Discharge Date/Time: 05/16/23 18:34
[2023-05-16] MEDS ORDERED: levoFLOXacin 750 MG/150 ML 750 MG/150 ML BAG IV SCH (16:00)
--- NOTE | 2023-05-16 16:55 | CT Report ---
PROCEDURE: ABDOMEN/PELVIS W INDICATIONS: RLQ PAIN, HX CA, URETERAL STENTS CONTRAST: 100mL Omni 300 TECHNIQUE: After the administration of IV contrast, 5 mm thick sections acquired from the diaphragms to the symp hysis. 5 mm thick coronal and sagittal reformats were acquired. For radiation dose reduction, the f ollowing was used: automated exposure control, adjustment of mA and/or kV according to patient size. COMPARISON: 01/25/2023 FINDINGS: Image quality: Excellent. Lung bases and heart: Mild bibasilar dependent atelectasis is seen. Heart size is normal, no pericard ial effusion.. Liver: No solid mass. Gallbladder and biliary tree: Gallbladder is within normal limits. No biliary ductal dilatation. Spleen: No splenomegaly. Pancreas: No pancreatic ductal dilation. Adrenals: No adrenal nodule. Kidneys and ureters: Bilateral ureteral stents are seen. There is interval removal of previously note d right cutaneous nephrostomy tube. There is moderate prominence of bilateral renal collecting system extending to the level of UPJs. No significant hydroureter. Bowel and peritoneum: No bowel distension. No pathologic free fluid. Fecal stasis throughout the colo n is seen. No abscess collection. No peritoneal free air. Lymph nodes: No central or retroperitoneal adenopathy. Vessels: No infrarenal aortic aneurysm. PELVIS Reproductive organs: Unremarkable. Bladder: There is diffuse bladder wall thickening with pericystic fat stranding and edema. No discret e bladder wall mass is noted. Pelvic lymph nodes: No pelvic adenopathy by size criteria. Bones: No aggressive osseous abnormality. Other: No significant ventral or inguinal hernia. IMPRESSION: 1. Bilateral ureteral stents in place. Interval development of moderate bilateral hydronephrosis to t he level of UPJ concerning for stent malfunctioning, suggest clinical correlation. 2. Inflammatory changes involving urinary bladder wall suggestive of cystitis. 3. No bowel obstruction. No abnormal bowel wall thickening. No peritoneal free fluid of free air. Mod erate constipation. Reviewed by: Cem Shukla MD on 05/16/2023 4:54 PM PDT Approved by: Cem Shukla MD on 05/16/2023 4:54 PM PDT Station ID: [id number]
[2023-05-16 17:09] VITALS: O2SAT 99
[2023-05-16] MEDS ORDERED: HYDROcod/ACET 5/325 Prepack 4 PO STA (18:20)
[2023-05-16 18:34] VITALS: BP 103/68
[2023-05-17] MEDS ORDERED: iohexoL-300 100 ML VIAL IVP ONE (00:36)
== END 2023-05-16 18:34 | disposition home or self-care (01) ==
LOC: ED 13:21
DX: N39.0 Urinary tract infection, site not specified (principal); Z88.1 Allergy status to other antibiotic agents; N13.6 Pyonephrosis; N18.9 Chronic kidney disease, unspecified; Z96.0 Presence of urogenital implants
CPT/HCPCS: 36415; 74177; 80053; 81001; 83690; 85025; 87077; 87086; 87181; 96365; 96366; 96375; 99284; Q9967; 80048; 81003

== ENCOUNTER 2023-07-28 12:50 | Outpatient (CLI) | payer OTHER ==
[2023-07-28 14:50] LABS: BASOPHILS % (AUTO) 0.9 %; EOSINOPHILS # (AUTO) 0.3 10^3/uL (0.0-0.7); EOSINOPHILS % (AUTO) 7.1 %; HCT - HEMATOCRIT 38.2 % (37.0-47.0); HGB - HEMOGLOBIN 12.6 g/dL (12.0-16.0); LYMPHOCYTES # (AUTO) 0.8 10^3/uL (1.5-3.5); LYMPHOCYTES % (AUTO) 18.5 %; MEAN CORPUSCULAR HEMOGLOBIN 33.1 pg (27.0-31.0); MEAN CORPUSCULAR VOLUME 100.3 fL (81.0-99.0); MEAN PLATELET VOLUME 10.1 fL (7.9-10.8); MONOCYTES # (AUTO) 0.4 10^3/uL (0.0-1.0); MONOCYTES % (AUTO) 9.3 %; NEUTROPHILS # (AUTO) 2.9 10^3/uL (1.5-6.6); NEUTROPHILS % (AUTO) 63.8 %; PLT - PLATELET COUNT 219 10^3/uL (130-450); RED BLOOD COUNT 3.81 10^6/uL (4.20-5.40); RED CELL DISTRIBUTION WIDTH 12.5 % (12.0-15.0); WHITE BLOOD COUNT 4.5 x10^3/uL (4.8-10.8)
[2023-07-28 16:16] LABS: ALBUMIN 4.1 g/dL (3.2-5.5); ALBUMIN/GLOBULIN RATIO 1.5 (1.0-2.2); BILIRUBIN,TOTAL 0.3 mg/dL (0.2-1.0); CALCIUM 9.5 mg/dL (8.5-10.3); CREATININE 1.5 mg/dL (0.6-1.3); TOTAL PROTEIN 6.9 g/dL (6.4-8.9)
== END 2023-07-28 12:51 | disposition home or self-care (01) ==
LOC: LAB.S 12:50
PROVIDERS: ATTEND Surgery
DX: R68.89 Other general symptoms and signs (principal); Z13.228 Encounter for screening for other metabolic disorders
CPT/HCPCS: 36415; 80053; 85025

== ENCOUNTER 2023-08-10 07:50 | Day surgery (SDC) | payer OTHER ==
[2023-08-10] MEDS ORDERED: LACTATED RINGERS 1,000 ML IV ONE ×3 (08:10→09:51)
--- NOTE | 2023-08-10 08:58 | ANESTHESIA ---
Pre-Anesthesia VS, & Labs - Diagnosis screening - Procedure colonoscopy Vital Signs: Temp Pulse Resp BP Pulse Ox O2 Flow Rate 36.9 C 77 11 L 109/68 99 08/10/23 08:10 08/10/23 08:10 08/10/23 08:10 08/10/23 08:10 08/10/23 08:10 Height: 5 ft 1 in Weight (kg): 59 kg Body Mass Index: 24.5 BMI Classification: Normal - NPO >8 hours Last Fluid Intake: am prep - Is Patient ?: No - Lab Results Lab results reviewed: Yes Home Medications and Allergies Pyridoxine HCl (Vitamin B6) [Vitamin B-6] 25 mg PO DAILY 01/25/23 Allergies/Adverse Reactions: Allergies Allergy/AdvReac Type Severity Reaction Status Date / Time cefepime Allergy Anaphylaxis Verified 08/10/23 08:16 coconut Allergy Unknown Verified 08/10/23 08:16 erythromycin base Allergy Nausea Verified 08/10/23 08:16 lamotrigine [From Lamictal] Allergy Rash Verified 08/10/23 08:16 shellfish derived Allergy Anaphylaxis Verified 08/10/23 08:16 surgical silk tape Allergy Hives Uncoded 08/10/23 08:16 Anes History & Medical History - Anesthetic History Anesthesia Complications: reports: No previous complications Family history of Anesthesia Complications: Denies Family history of Malignant Hyperthermia: Denies - Medical History Cardiovascular: reports: None Pulmonary: reports: None Gastrointestinal: reports: None, Other (appearing jaundiced, denies liver problems) Urinary: reports: Other (nephrostomy tubes, B) Neuro: reports: None Musculoskeletal: reports: None Endocrine/Autoimmune: reports: None Blood Disorders: reports: None Skin: reports: None Smoking Status: Never smoker History of Cancer?: Yes (cervical) - Surgical History General: reports: Other Gynecologic: reports: Other Exam General: Alert, Oriented x3, Cooperative Dental: WNL Mouth Openin Fingerbreadth Neck Mobility: Normal Mallampati classification: II Thyromental Distance: 4-6 cm Respiratory: Lungs clear, Normal breath sounds, No respiratory distress Cardiovascular: Regular rate Neurological: Normal speech Mental/Cognitive Status: Alert/Oriented X3, Normal for patient Cognitive Status: Within normal limits Plan Anesthesia Type: Total IV Consent for Procedure(s) Verified and Reviewed: Yes Code Status: Attempt Resuscitation ASA classification: 3-Severe systemic disease Is this case an emergency?: No
[2023-08-10] MEDS ORDERED: PROPOFOL 500 MG/50 ML 500 MG/50 ML VIAL ONE (09:25)
[2023-08-10] MEDS ORDERED: MIDAZOLAM 2 MG/2 ML VIAL ONE (09:26)
[2023-08-10] MEDS ORDERED: LIDOCAINE-MPF 2% 5 ML VIAL ONE (09:34)
[2023-08-10 10:01] VITALS: O2SAT 98
--- NOTE | 2023-08-10 10:21 | ANESTHESIA POST OP EVALUATION ---
Anesthesia Post Eval - Post Anesthesia Eval Vitals: Last Vital Signs Temp 36.4 C L 08/10/23 10:00 Pulse 76 08/10/23 10:00 Resp 17 08/10/23 10:00 BP 94/61 08/10/23 10:00 Pulse Ox 98 08/10/23 10:00 O2 Flow Rate CV Function Including HR & BP: Stable Pain Control: Satisfactory Nausea & Vomiting: Negative Mental Status: Baseline Respiratory Status: Airway Patent Hydration Status: Satisfactory Anesthesia Complications: None
[2023-08-10 10:42] VITALS: BP 101/67
== END 2023-08-10 07:51 | disposition home or self-care (01) ==
LOC: SDS 07:50
PROVIDERS: ATTEND Surgery
DX: Z12.11 Encounter for screening for malignant neoplasm of colon (principal); K57.30 Diverticulosis of large intestine without perforation or abscess without bleeding; K64.1 Second degree hemorrhoids; Z85.41 Personal history of malignant neoplasm of cervix uteri
CPT/HCPCS: 45378; J7120

== ENCOUNTER 2023-12-16 09:09 | Outpatient (CLI) | payer OTHER ==
[2023-12-16 16:13] LABS: BASOPHILS % (AUTO) 0.7 %; EOSINOPHILS # (AUTO) 0.2 10^3/uL (0.0-0.7); EOSINOPHILS % (AUTO) 4.9 %; HGB - HEMOGLOBIN 12.6 g/dL (12.0-16.0); LYMPHOCYTES # (AUTO) 0.7 10^3/uL (1.5-3.5); LYMPHOCYTES % (AUTO) 14.7 %; MEAN CORPUSCULAR HEMOGLOBIN 33.3 pg (27.0-31.0); MEAN CORPUSCULAR HGB CONC 34.1 g/dL (32.0-36.0); MEAN CORPUSCULAR VOLUME 97.9 fL (81.0-99.0); MEAN PLATELET VOLUME 10.5 fL (7.9-10.8); MONOCYTES # (AUTO) 0.6 10^3/uL (0.0-1.0); MONOCYTES % (AUTO) 12.3 %; NEUTROPHILS % (AUTO) 67.2 %; PLT - PLATELET COUNT 219 10^3/uL (130-450); RED BLOOD COUNT 3.78 10^6/uL (4.20-5.40); RED CELL DISTRIBUTION WIDTH 12.5 % (12.0-15.0); WHITE BLOOD COUNT 4.5 x10^3/uL (4.8-10.8)
[2023-12-16 17:09] LABS: ALBUMIN 4.1 g/dL (3.2-5.5); ALBUMIN/GLOBULIN RATIO 1.6 (1.0-2.2); BILIRUBIN,TOTAL 0.4 mg/dL (0.2-1.0); CALCIUM 10.3 mg/dL (8.5-10.3); CREATININE 1.4 mg/dL (0.6-1.3); POTASSIUM 4.2 mmol/L (3.5-4.5); TOTAL PROTEIN 6.7 g/dL (6.4-8.9)
== END 2023-12-16 09:10 | disposition home or self-care (01) ==
LOC: LAB.S 09:09
PROVIDERS: ATTEND Internal Medicine
DX: D53.9 Nutritional anemia, unspecified (principal); R53.83 Other fatigue; R10.31 Right lower quadrant pain
CPT/HCPCS: 36415; 80053; 81001; 85025; 87086

== ENCOUNTER 2024-01-15 14:26 | Outpatient (CLI) | payer OTHER ==
--- NOTE | 2024-01-15 21:26 | Ultrasound Report ---
PROCEDURE: Bladder INDICATIONS: PRESENCE OF NEPHROSTOMY TECHNIQUE: Real-time scanning was performed of the kidneys and bladder, with image documentation. COMPARISON: CT of the abdomen and pelvis dated 05/16/2023 FINDINGS: Bladder: Pre-void bladder volume is 39.9 mL. Post-void residual is 2.5 mL. Pre-void images demonst rate no intraluminal masses or stones. On pre-void images, bilateral ureteral jets are noted with co henri Doppler interrogation. (Of note, ureteral jets may not be detectable in up to 25% of cases due t o insufficient differences in specific gravity between ureteral and bladder urine). Miscellaneous: No free pelvic fluid. IMPRESSION: No significant post void residual. Reviewed by: Barbraa Wilhelm MD on 01/15/2024 9:25 PM PDT Approved by: Barbara Wilhelm MD on 01/15/2024 9:25 PM PDT Station ID: [id number]
== END 2024-01-15 14:27 | disposition home or self-care (01) ==
LOC: DI 14:26
PROVIDERS: ATTEND Internal Medicine
DX: N13.5 Crossing vessel and stricture of ureter without hydronephrosis (principal); Z93.6 Other artificial openings of urinary tract status

== ENCOUNTER 2024-01-15 15:24 | Emergency (ER) | payer OTHER ==
[2024-01-15 15:39] VITALS: BP 140/80; O2SAT 100
[2024-01-15 15:42] LABS: BILIRUBIN,URINE NEGATIVE (NEGATIVE); GLUCOSE, URINE (UA) NEGATIVE (NEGATIVE); KETONES,URINE (UA) NEGATIVE (NEGATIVE); LEUKOCYTE ESTERASE, URINE SMALL (NEGATIVE); NITRITE,URINE NEGATIVE (NEGATIVE); OCCULT BLOOD,URINE MODERATE (NEGATIVE); PROTEIN,URINE TRACE mg/dL (NEGATIVE); UROBILINOGEN,URINE 0.2 (NORMAL) E.U./dL (NORMAL)
[2024-01-15 15:44] LABS: CLARITY,URINE CLEAR (CLEAR)
[2024-01-15 15:54] LABS: BACTERIA,URINE Few /HPF (None Seen); SQUAMOUS EPITHELIAL CELL,UR FEW Squamous (<= Few)
--- NOTE | 2024-01-15 15:54 | ED Physician Documentation ---
History of Present Illness - Stated complaint Stated Complaint: - Chief complaint Chief Complaint: UTI - History obtained from History obtained from: Patient - Additonal information Additional information: 53-year-old woman with history of cervical cancer and radiation causing some ureteral obstruction and has chronic nephrostomies in place. She has somewhat frequent UTIs and developed burning dysuria and frequency last night. No fevers or flank pain. 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: Other - Present Medications Home Medications: Ambulatory Orders Medication Instructions Recorded Confirmed Ciprofloxacin [Cipro] 250 mg PO Q12H #14 tablet 01/15/24 - Allergies Allergies/Adverse Reactions: Allergies Allergy/AdvReac Type Severity Reaction Status Date / Time cefepime Allergy Anaphylaxis Verified 01/15/24 15:28 coconut Allergy Unknown Verified 01/15/24 15:28 erythromycin base Allergy Nausea Verified 01/15/24 15:28 lamotrigine [From Lamictal] Allergy Rash Verified 01/15/24 15:28 shellfish derived Allergy Anaphylaxis Verified 01/15/24 15:28 surgical silk tape Allergy Hives Uncoded 01/15/24 15:28 - Social History Does the pt smoke?: No Smoking Status: Never smoker Does the pt drink ETOH?: No Does the pt have substance abuse?: No - Immunizations Immunizations are current?: Yes - POLST Patient has POLST: No PD ED PE NORMAL - Vitals Vital signs reviewed: Yes - General General: Alert and oriented X 3, No acute distress - Abdomen Abdomen: Soft, Non tender - Back Back: No CVA TTP, Other (Bilateral nephrostomies in place with clear drainage in the tubes) - Neuro Neuro: Alert and oriented X 3 Results - Vitals Vitals: Vital Signs - 24 hr 01/15/24 15:28 Temperature 36.8 C Heart Rate 73 Respiratory 16 Rate Blood Pressure 140/80 H O2 Saturation 100 Oxygen O2 Source Room air - Labs Labs: Laboratory Tests 01/15/24 15:33 Urine Color YELLOW Urine Clarity CLEAR Urine pH 6.0 Ur Specific [place] <=1.005 Urine Protein TRACE Urine Glucose (UA) NEGATIVE Urine Ketones NEGATIVE Urine Occult Blood MODERATE H Urine Nitrite NEGATIVE Urine Bilirubin NEGATIVE Urine Urobilinogen 0.2 (NORMAL) Ur Leukocyte Esterase SMALL H Ur Microscopic Review INDICATED Urine Culture Comments Not Reportable PD Medical Decision Making - ED course ED course: Recent urine cultures reviewed, reasonable to start Cipro per prior Enterococcus sensitivities which was her request. She is seeing urology later this week. No evidence of pyelonephritis. Departure - Departure Disposition: Home, Self Care Clinical Impression: Cystitis Condition: Good Record reviewed to determine appropriate education?: Yes Instructions: ED UTI Cystitis Female Prescriptions: Ciprofloxacin [Cipro] 250 mg PO Q12H #14 tablet Comments: I sent your prescription electronically to the [facility] in [place]. Follow-up with urologist as scheduled. We will culture your urine, the results should be done in 48-72 hours. If an antibiotic change is necessary we will call you. Return if worse in the meantime, especially if you develop increasing flank pain, fevers, or cannot keep down the medication.
[2024-01-15] MEDS: CIPROFLOXACIN 250 MG TABLET PO STA (16:01)
== END 2024-01-15 16:06 | disposition home or self-care (01) ==
LOC: ED 15:24
DX: N30.90 Cystitis, unspecified without hematuria (principal); Z93.6 Other artificial openings of urinary tract status; N13.5 Crossing vessel and stricture of ureter without hydronephrosis
CPT/HCPCS: 76857; 81001; 87086; 99283; A9270; 81003

== ENCOUNTER 2024-01-25 15:05 | Emergency (ER) | payer OTHER ==
[2024-01-25 16:10] LABS: BASOPHILS % (AUTO) 0.4 %; EOSINOPHILS # (AUTO) 0.1 10^3/uL (0.0-0.7); EOSINOPHILS % (AUTO) 0.7 %; HCT - HEMATOCRIT 35.4 % (37.0-47.0); HGB - HEMOGLOBIN 11.7 g/dL (12.0-16.0); LYMPHOCYTES # (AUTO) 0.5 10^3/uL (1.5-3.5); LYMPHOCYTES % (AUTO) 4.3 %; MEAN CORPUSCULAR HEMOGLOBIN 32.2 pg (27.0-31.0); MEAN CORPUSCULAR HGB CONC 33.1 g/dL (32.0-36.0); MEAN CORPUSCULAR VOLUME 97.5 fL (81.0-99.0); MONOCYTES # (AUTO) 0.8 10^3/uL (0.0-1.0); MONOCYTES % (AUTO) 7.6 %; NEUTROPHILS # (AUTO) 9.3 10^3/uL (1.5-6.6); NEUTROPHILS % (AUTO) 86.6 %; PLT - PLATELET COUNT 188 10^3/uL (130-450); RED BLOOD COUNT 3.63 10^6/uL (4.20-5.40); RED CELL DISTRIBUTION WIDTH 12.7 % (12.0-15.0); WHITE BLOOD COUNT 10.7 x10^3/uL (4.8-10.8)
[2024-01-25] MEDS: HYDROmorphone 1 MG/ML CARPUJECT IVP STA (16:17)
[2024-01-25 16:24] LABS: BILIRUBIN,URINE NEGATIVE (NEGATIVE); GLUCOSE, URINE (UA) NEGATIVE (NEGATIVE); KETONES,URINE (UA) NEGATIVE (NEGATIVE); LEUKOCYTE ESTERASE, URINE MODERATE (NEGATIVE); NITRITE,URINE NEGATIVE (NEGATIVE); OCCULT BLOOD,URINE MODERATE (NEGATIVE); PROTEIN,URINE 30 mg/dL (NEGATIVE); UROBILINOGEN,URINE 0.2 (NORMAL) E.U./dL (NORMAL)
[2024-01-25 16:28] LABS: ALBUMIN 4.1 g/dL (3.2-5.5); ALBUMIN/GLOBULIN RATIO 1.6 (1.0-2.2); BILIRUBIN,TOTAL 0.5 mg/dL (0.2-1.0); CALCIUM 9.9 mg/dL (8.5-10.3); CREATININE 1.9 mg/dL (0.6-1.3); POTASSIUM 3.7 mmol/L (3.5-4.5); TOTAL PROTEIN 6.7 g/dL (6.4-8.9)
[2024-01-25 16:29] LABS: CLARITY,URINE HAZY (CLEAR)
[2024-01-25 16:39] LABS: BACTERIA,URINE Rare /HPF (None Seen); SQUAMOUS EPITHELIAL CELL,UR FEW Squamous (<= Few); WBC,URINE >25 /HPF (0-5)
[2024-01-25 17:08] VITALS: BP 125/72
--- NOTE | 2024-01-25 18:05 | ED Physician Documentation ---
History of Present Illness - Stated complaint Stated Complaint: CHILLS,NAUSEA - Chief complaint Chief Complaint: General - History obtained from History obtained from: Patient, Friend - History of Present Illness Timing: Today Pain level max: 9 Pain level now: 9 - Additonal information Additional information: 53-year-old female presents to the emergency department with bilateral nephrostomy tubes. She states that she was doing a "capping trial". She states that she To the right side and left side. Patient states that she was having pain on the left side so she undid the cap and placed the nephrostomy tube back on a drainage bag. She states that since that time she has had increasing back pain. No vomiting. No fevers. She states she feels like she has been chilled. Nothing makes it better or worse. She is followed by Dr. Arias, urology. Has a history of cancer that has stenosed her ureters. 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 HEENT: None Psych: None Musculoskeletal: None Derm: None - Past Surgical History Past Surgical History: Yes 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 - Present Medications Home Medications: Ambulatory Orders Medication Instructions Recorded Confirmed Ciprofloxacin [Cipro] 250 mg PO Q12H #14 tablet 01/15/24 - Allergies Allergies/Adverse Reactions: Allergies Allergy/AdvReac Type Severity Reaction Status Date / Time cefepime Allergy Anaphylaxis Verified 01/25/24 15:08 coconut Allergy Unknown Verified 01/25/24 15:08 erythromycin base Allergy Nausea Verified 01/25/24 15:08 lamotrigine [From Lamictal] Allergy Rash Verified 01/25/24 15:08 shellfish derived Allergy Anaphylaxis Verified 01/25/24 15:08 surgical silk tape Allergy Hives Uncoded 01/25/24 15:08 - Social History Does the pt smoke?: No Smoking Status: Never smoker Does the pt drink ETOH?: No Does the pt have substance abuse?: No - Immunizations Immunizations are current?: Yes - POLST Patient has POLST: No PD ED PE NORMAL - Vitals Vital signs reviewed: Yes - General General: Alert and oriented X 3, No acute distress - HEENT HEENT: Moist mucous membranes - Neck Neck: Supple, no meningeal sign - Cardiac Cardiac: RRR - Respiratory Respiratory: No respiratory distress, Clear bilaterally - Abdomen Abdomen: Soft, Non tender, Non distended - Back Back: No spinal TTP, Other (B nephrostomy tubes in place. no signs of infection) - Derm Derm: Warm and dry - Neuro Neuro: Alert and oriented X 3 - Psych Psych: Normal mood, Normal affect Results - Vitals Vitals: Vital Signs - 24 hr 01/25/24 01/25/24 01/25/24 15:08 16:31 17:04 Temperature 37.1 C Heart Rate 116 H 112 H 111 H Respiratory 26 H 14 17 Rate Blood Pressure 140/60 H 118/70 125/72 O2 Saturation 100 98 97 If not protocol 2 2 : Oxygen Flow, liters/minute 01/25/24 01/25/24 17:06 17:57 Temperature 37.4 C Heart Rate 100 Respiratory 17 16 Rate Blood Pressure O2 Saturation 99 100 If not protocol 2 : Oxygen Flow, liters/minute Oxygen O2 Source Room air - Labs Labs: Laboratory Tests 01/25/24 01/25/24 01/25/24 16:06 16:06 16:11 WBC 10.7 RBC 3.63 L Hgb 11.7 L Hct 35.4 L MCV 97.5 MCH 32.2 H MCHC 33.1 RDW 12.7 Plt Count 188 MPV 10.0 Neut # (Auto) 9.3 H Lymph # (Auto) 0.5 L [place] # (Auto) 0.8 Eos # (Auto) 0.1 Baso # (Auto) 0.0 Absolute Nucleated RBC 0.00 Nucleated RBC % 0.0 Sodium 140 Potassium 3.7 Chloride 106 Carbon Dioxide 24 Anion Gap 10.0 BUN 33 H Creatinine 1.9 H Estimated GFR (MDRD) 28 L Glucose 106 H Calcium 9.9 Total Bilirubin 0.5 AST 13 ALT 11 Alkaline Phosphatase 67 Total Protein 6.7 Albumin 4.1 Globulin 2.6 Albumin/Globulin Ratio 1.6 Lipase 19 Urine Color YELLOW Urine Clarity [place] Urine pH 6.0 Ur Specific [place] 1.010 Urine Protein 30 H Urine Glucose (UA) NEGATIVE Urine Ketones NEGATIVE Urine Occult Blood MODERATE H Urine Nitrite NEGATIVE Urine Bilirubin NEGATIVE Urine Urobilinogen 0.2 (NORMAL) Ur Leukocyte Esterase MODERATE H Urine RBC 6-10 H Urine WBC >25 H Ur Squamous Epith Cells FEW Squamous Urine Bacteria Rare Ur Microscopic Review INDICATED Urine Culture Comments INDICATED - Rads (name of study) Ct abd pelvis Relevant Findings:: Final report received, See rad report PD Medical Decision Making - ED course Complexity details: reviewed results, re-evaluated patient, considered differential, d/w patient, d/w family, d/w assessment consultant ED course: 53-year-old female with bilateral nephrostomy tubes. The left nephrostomy tube is draining clear urine. She still has the right nephrostomy tube clamped off. Discussed the case with Dr. Arias, urology, recommends noncontrast CT to ensure the stents are still in place. Patient was given a dose of Dilaudid and pain resolved. She appears to have fairly significant hydronephrosis on the right side, likely causing her pain. Therefore the nephrostomy tube was uncapped and a drainage bag was placed. Had approximately 100 and mL of clear yellow urine output within about 20 minutes. Patient is asymptomatic in the emergency department. Her urinalysis appears likely chronically colonized, no fever. Discussed with Dr. Arias, he states do not treat this as infection. We will have the patient follow-up with him for further care and leave the nephrostomy tubes connected to her drainage bags. Patient counseled regarding signs and symptoms for which I believe and urgent re-evaluation would be necessary. Patient with good understanding of and agreement to plan and is comfortable going home at this time This document was made in part using voice recognition software. While efforts are made to proofread this document, sound alike and grammatical errors may occur. Departure - Departure Disposition: Home, Self Care Clinical Impression: Attention to nephrostomy Hydronephrosis Qualifiers: Hydronephrosis type: unspecified Qualified Code(s): N13.30 - Unspecified hydronephrosis Condition: Good Follow-Up: Sharona Montoya MD [Primary Care Provider] - Within 1 week Erasmo Arias MD [Provider Admit Priv/Credential] - Comments: Please follow-up with Dr. Arias for further care. As we discussed please make sure that both of your nephrostomy tubes are hooked up to drainage bags to avoid any further complications. Please return if you worsen. Forms: PCP List Discharge Date/Time: 01/25/24 18:40
[2024-01-25 18:06] VITALS: O2SAT 100
--- NOTE | 2024-01-25 18:09 | CT Report ---
PROCEDURE: Abdomen/Pelvis WO INDICATIONS: L sided nephrostomy tube TECHNIQUE: A CT scan of the abdomen and pelvis was performed without the use of intravenous contrast. Images we re recorded and evaluated at appropriate window settings. Reformats: coronal and sagittal. For radiat ion dose reduction, the following was used: automated exposure control, adjustment of mA and/or kV ac cording to patient size. COMPARISON: 05/08/2023 FINDINGS: Image quality: Diagnostic. Lower chest: Mild bibasilar atelectasis. Liver: No contour-deforming mass. Gallbladder and biliary tree: No radiopaque stones or wall thickening. No biliary dilation. Spleen: No splenomegaly. Pancreas: No pancreatic ductal dilation. Adrenals: No adrenal nodule. Kidneys and ureters: There are bilateral percutaneous nephrostomy tubes in place. The distal pigtail component appears to be within the renal pelvis bilaterally. No hydronephrosis on the left. Mild left renal atrophy. Left ureter is normal in course and caliber. There is moderate right hydronephrosis a nd mild perinephric stranding. Mild right hydroureter and associated enhancement of the ureteral wall and right renal pelvis. Mild perinephric and periureteral stranding on the right. Stomach, bowel and peritoneum: No bowel distension. No pathologic free fluid. Lymph nodes: No central or retroperitoneal adenopathy. Vessels: No infrarenal aortic aneurysm. PELVIS Reproductive organs: Unremarkable. Bladder: There is circumferential wall thickening of the urinary bladder with perivesicular stranding . No bladder stone seen. Pelvic lymph nodes: No pelvic adenopathy by size criteria. Bones: No aggressive osseous abnormality. Other: No significant ventral or inguinal hernia. IMPRESSION: 1. Bilateral percutaneous nephrostomy tubes in place. Placement of catheters appear appropriate. Ther e is moderate right hydronephrosis and right hydroureter with associated perinephric and periureteral stranding and right renal pelvis/ureteral wall enhancement. There is also thickening of the urinary bladder wall and perivesicular stranding. A concurrent infectious uropathy is suspected. Recommend ur ology consultation. 2. Other chronic findings as above Reviewed by: Freddie Gilbert MD on 01/25/2024 6:08 PM PDT Approved by: Freddie Gilbert MD on 01/25/2024 6:08 PM PDT Station ID: [id number]
== END 2024-01-25 18:40 | disposition home or self-care (01) ==
LOC: ED 15:05
DX: N13.30 Unspecified hydronephrosis (principal); Z93.6 Other artificial openings of urinary tract status
CPT/HCPCS: 36415; 74176; 80053; 81001; 83690; 85025; 87086; 96374; 99283; 99284; J1170; 81003

== ENCOUNTER 2024-05-10 07:00 | Outpatient (CLI) | payer OTHER ==
[2024-05-10 15:07] LABS: BILIRUBIN,URINE NEGATIVE (NEGATIVE); GLUCOSE, URINE (UA) NEGATIVE (NEGATIVE); KETONES,URINE (UA) NEGATIVE (NEGATIVE); LEUKOCYTE ESTERASE, URINE LARGE (NEGATIVE); NITRITE,URINE POSITIVE (NEGATIVE); OCCULT BLOOD,URINE MODERATE (NEGATIVE); PROTEIN,URINE TRACE mg/dL (NEGATIVE); UROBILINOGEN,URINE 0.2 (NORMAL) E.U./dL (NORMAL)
[2024-05-10 15:08] LABS: CLARITY,URINE HAZY (CLEAR)
[2024-05-10 15:22] LABS: BACTERIA,URINE Rare /HPF (None Seen); SQUAMOUS EPITHELIAL CELL,UR NONE SEEN (<= Few); WBC,URINE >25 /HPF (0-5)
== END 2024-05-10 23:59 | disposition home or self-care (01) ==
LOC: LAB.S 07:00
PROVIDERS: ATTEND Registered Nurse
DX: R10.9 Unspecified abdominal pain (principal); T83.512A Infection and inflammatory reaction due to nephrostomy catheter, initial encounter; R94.4 Abnormal results of kidney function studies
CPT/HCPCS: 81001

== ENCOUNTER 2025-06-04 03:02 | Observation (INO) ==
--- OUTSIDE RECORDS SUMMARY | 2025-06-04 03:22 | EXTERNAL MEDICAL SUMMARY RPT | Continuity of Care Document ---
Author Organization [facility] Address [address] [place] [id number] Phone Problems date description facility 2025-03-08 14:31 Encounter for attent ion to other artificial openings of urinary tract [facility] 2025-03-08 14:32 Encounter for attent ion to other artificial openings of urinary tract [facility] 2025-03-15 14:31 Encounter for attent ion to other artificial openings of urinary tract [facility] 2025-03-18 13:07 Malignant neoplasm of cervix ut jose, unspecified [facility] 2025-03-18 14:21 Malignant neoplasm of cervix ut jose, unspecified [facility] 2025-03-18 15:38 Encounter for attent ion to other artificial openings of urinary tract [facility] 2025-03-18 15:39 Encounter for attent ion to other artificial openings of urinary tract [facility] 2025-03-18 15:41 Encounter for attent ion to other artificial openings of urinary tract [facility] 2025-03-19 00:05 Malignant neoplasm of cervix ut jose, unspecified [facility] 2025-03-20 07:34 Malignant neoplasm of cervix ut jose, unspecified [facility] 2025-03-20 07:34 Hemangioma of intra-abdominal s tructures [facility] 2025-03-20 07:34 Obstructive and reflux uropathy , unspecified [facility] 2025-03-20 07:34 Other abnormal and i nconclusive findings on diagnostic imaging of breast [facility] 2025-03-20 07:34 Encounter for genera l adult medical examination without abnormal findings [facility] 2025-03-29 14:14 Encounter for attent ion to other artificial openings of urinary tract [facility] 2025-03-29 14:35 Disorder of mineral metabolism, unspecified [facility] 2025-03-29 14:35 Disorder of bone, [facility] 14:35 Chronic kidney disease, stage 3 a [facility] 2025-04-12 14:01 Encounter for attent ion to other [facility] openings of urinary [facility] 2025-04-12 14:02 Encounter for attent ion to other artificial openings of urinary tract [facility] 2025-04-25 09:51 Encounter for attent ion to other artificial openings of urinary tract [facility] 2025-04-26 14:31 Encounter for attent ion to other artificial openings of urinary tract [facility] 2025-04-26 14:32 Encounter for attent ion to other artificial openings of urinary tract [facility] 2025-04-26 15:01 Encounter for attent ion to other artificial openings of urinary tract [facility] 2025-04-26 15:04 Encounter for attent ion to other artificial openings of urinary tract [facility] 2025-04-26 15:06 Encounter for attent ion to other artificial openings of urinary tract [facility] 2025-04-26 15:07 Encounter for attent ion to other artificial openings of urinary tract [facility] 2025-04-26 15:09 Encounter for attent ion to other artificial openings of urinary tract [facility] 2025-04-27 00:02 Vitamin D deficiency, unspecifi ed [facility] 2025-04-27 00:02 Chronic kidney disease, stage 3 b [facility] 2025-04-27 00:02 Other fatigue [facility] 2025-04-27 00:02 Encounter for genera l adult medical examination without abnormal findings [facility] 2025-05-03 13:02 Encounter for attent ion to other artificial openings of urinary tract [facility] 2025-05-03 13:04 Encounter for attent ion to other artificial openings of urinary tract [facility] 2025-05-06 08:24 Vitamin D deficiency, unspecifi ed [facility] 2025-05-06 08:24 Chronic kidney disease, stage 3 b [facility] 2025-05-06 08:24 Chronic fatigue, [facility] 08:24 Other fatigue [facility] 2025-[facility]06 08:24 Encounter for genera l adult medical examination without abnormal findings [facility] 2025-05[facility]06 08:24 Other artificial openings of ur inary tract status [facility] 2025-05-08 10:59 Encounter for attent ion to other artificial openings of urinary tract [facility] 2025-05-08 11:02 Encounter for attent ion to other artificial openings of urinary tract [facility] 2025-05-08 11:05 Encounter for attent ion to other artificial openings of urinary tract [facility] 2025-05-08 11:07 Encounter for attent ion to other artificial openings of urinary tract [facility] 2025-05-08 11:12 Encounter for attent ion to other artificial openings of urinary tract [facility] 2025-05-08 11:25 Encounter for attent ion to other artificial openings of urinary tract [facility] 2025-05-08 11:27 Encounter for attent ion to other artificial openings of urinary tract [facility] 2025-05-10 14:24 Vitamin D deficiency, unspecifi ed [facility] 2025-05-10 14:24 Chronic kidney disease, stage 3 b [facility] 2025-05-10 14:24 Unspecified abdominal pain [employer] 2025-05-10 14:24 Dysuria [facility] 2025-05[facility]10 14:24 Other fatigue [facility] 2025-05-10 14:24 Encounter for genera l adult medical examination without abnormal findings [facility] 2025-05-10 14:40 Encounter for attent ion to other artificial openings of urinary tract [facility] 2025-05-11 00:04 Vitamin D deficiency, unspecifi ed [facility] 2025-05-11 00:04 Chronic kidney disease, stage 3 b [facility] 2025-05-11 00:04 Other fatigue [facility] 2025-05-11 00:04 Encounter for genera l adult medical examination without abnormal findings [facility] 2025-05-13 09:21 Encounter for genera l adult medical examination without abnormal findings [facility] 2025-05-13 17:00 Unspecified abdominal pain [facility] [employer] 2025-05-13 17:00 Dysuria [facility] 2025-05-14 07:38 Unspecified abdominal pain [facility] 2025-05-14 07:38 Dysuria [facility] 2025-05-15 07:28 Unspecified abdominal pain [facility] [employer] 2025-05-17 14:25 Encounter for attent ion to other artificial openings of urinary tract [facility] 2025-05[facility]17 14:26 Encounter for attent ion to other artificial openings of urinary tract [facility] 2025-05-17 14:27 Encounter for attent ion to other artificial openings of urinary tract [facility] 2025-05-17 14:29 Encounter for attent ion to other artificial openings of urinary tract [facility] 2025-05-17 14:30 Encounter for attent ion to other artificial openings of urinary tract [facility] 2025-05-17 14:34 Encounter for attent ion to other artificial openings of urinary tract [facility] 2025-05-17 14:35 Encounter for attent ion to other artificial openings of urinary tract [facility] 2025-05-17 14:37 Encounter for attent ion to other artificial openings of urinary tract [facility] 2025-05-17 15:01 Encounter for attent ion to other artificial openings of urinary tract [facility] 2025-05-17 15:02 Encounter for attent ion to other artificial openings of urinary tract [facility] 2025-05-24 14:06 Encounter for attent ion to other artificial openings of urinary tract [facility] Results/Labs test date facility value unit notes Result panel 1 NUCLEATED RED BLOOD CELLS AUTO 2025-03-18 13:14 [facility] 0.0 /100wbc (missing) BASOPHILS # (AUTO) 2025-03-18 13:14 [facility] 0.0 10 3/ul (missing) NRBC ABSOLUTE COUNT (AUTO) 2025-03-18 13:14 [facility] 0.00 x10 3/ul (missing) EOSINOPHILS # (AUTO) 2025-03-18 13:14 [facility] 0.2 10 3/ul (missing) BILIRUBIN,TOTAL 2025-03-18 13:14 [facility] 0.4 mg /dl As of March 2023 testing method has changed, this may include reference ranges. MONOCYTES # (AUTO) 2025-03-18 13:14 [facility] 0.8 10 3/ul (missing) LYMPHOCYTES # (AUTO) 2025-03-18 13:14 [facility] 1.0 10 3/ul (missing) ALBUMIN/GLOBULIN RATIO 2025-03-18 13:14 [facility] 1.4 (missing) (missing) CREATININE 2025-03-18 13:14 [facility] 1.4 mg/dl As of March 2023 testing method has changed, this may include reference ranges. ALT ALANINE AMINOTRANSFERASE 2025-03-18 13:14 [facility] 10 iu/l As of March 2023 testing method has changed, this may include reference ranges. MEAN PLATELET VOLUME 2025-03-18 13:14 [facility] 10.1 fl (missing) CHLORIDE 2025-03-18 13:14 [facility] 101 mmol/l As of March 2023 testing method has changed, this may include reference ranges. GLUCOSE 2025-03-18 13:14 [facility] 105 mg/dl As of March 2023 testing method has changed, this may include reference ranges. AST ASPARTATE AMINOTRANSFERASE 2025-03-18 13:14 [facility] 12 iu/l As of March 2023 testing method has changed, this may include reference ranges. HGB - HEMOGLOBIN 2025-03-18 13:14 [facility] 12.1 g /dl (missing) RED CELL DISTRIBUTION WIDTH 2025-03-18 13:14 [facility] 13.9 % (missing) SODIUM 2025-03-18 13:14 [facility] 135 mmol/l (missing) BUN - BLOOD UREA NITROGEN 2025-03-18 13:14 [facility] 23 mg/dl As of Mar testing method has changed, this may include reference ranges. PLT - PLATELET COUNT 2025-03-18 13:14 [facility] 231 10 3/ul (missing) CARBON DIOXIDE - CO2 2025-03-18 13:14 [facility] 28 mmol/l As of March 2023 testing method has changed, this may include reference ranges. GLOBULIN 2025-03-18 13:14 [facility] 3.0 g/dl (missing) RED BLOOD COUNT 2025-03-18 13:14 [facility] 3.73 10 6/ul (missing) NEUTROPHILS # (AUTO) 2025-03-18 13:14 [facility] 3.9 10 3/ul (missing) MEAN CORPUSCULAR HEMOGLOBIN 2025-03-18 13:14 [facility] 32.4 pg (missing) MEAN CORPUSCULAR HGB CONC 2025-03-18 13:14 [facility] 33.5 g/dl (missing) HCT - HEMATOCRIT 2025-03-18 13:14 [facility] 36.1 % (missing) GFR - MDRD 2025-03-18 13:14 [facility] 39 (dave risa) Social History date description facility
[2025-06-04 04:15] LABS: HCT - HEMATOCRIT 36.0 % (37.0-47.0); HGB - HEMOGLOBIN 11.9 g/dL (12.0-16.0); MEAN PLATELET VOLUME 9.7 fL (7.9-10.8); NRBC ABSOLUTE COUNT (AUTO) 0.00 x10^3/uL; NUCLEATED RED BLOOD CELLS AUTO 0.0 /100WBC; PLT - PLATELET COUNT 224 10^3/uL (130-450); RED CELL DISTRIBUTION WIDTH 13.5 % (12.0-15.0)
[2025-06-04 04:29] LABS: GLUCOSE, URINE (UA) NEGATIVE (NEGATIVE); KETONES,URINE (UA) NEGATIVE (NEGATIVE); OCCULT BLOOD,URINE TRACE-LYSED (NEGATIVE)
[2025-06-04 04:29] LABS: ALT ALANINE AMINOTRANSFERASE 9.0 IU/L (10-60); AST ASPARTATE AMINOTRANSFERASE 12.0 IU/L (10-42); BUN - BLOOD UREA NITROGEN 25.0 mg/dL (6-20); CARBON DIOXIDE - CO2 30.0 mmol/L (21-32); CREATININE 1.5 mg/dL (0.6-1.3); GFR - MDRD 36.0 (>89)
--- NOTE | 2025-06-04 04:34 | ED Physician Documentation ---
PD HPI ABD PAIN Stated complaint Stated Complaint: Chief complaint Chief Complaint: Abd Pain History obtained from History obtained from: Patient Additional information Additional information: Adriana Aponte is a 54-year-old female with a history of endocervical adenocarcinoma. She has undergone chemoradiation and vaginal brachytherapy. 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 She has nephrostomy tubes in place bilaterally and she is getting these replaced at [facility] in [place] every 3 months. She is recently had these replaced in March of this year and these were functioning well until there was no urine output in the development of intense pain in the left flank. She had good relief of her pain in the ambulance on the way here with the use of fentanyl and Toradol. [place] Coma Scale Assess Eye opening: Spontaneous Verbal response: Oriented Motor response: Obeys Commands Total score: 15 Review of Systems Patient denies any recent illness denies any fever chills sweats cough sputum production diarrhea constipation nausea vomiting or dysuria. She is complaining of pain to the left flank and absence of urine in the urostomy bag from the left side. She has normal output from the right side. She does make some urine as well. She has had problems with frequent cystitis. Meds/Allgy Home Medications Ambulatory Orders Medication Instructions Recorded Confirmed epinephrine 0.3 mg/0.3 mL 0.3 mg IM DIRECTED PRN 04/26/25 injection, auto-injector (EpiPen 2-Gabe) vitamin B complex 1 cap PO .QD 11/28/24 Allergies Allergies Allergy/AdvReac Type Severity Reaction Status Date / Time Cephalosporins Allergy Severe Anaphylaxis Verified 06/04/25 03:14 coconut Allergy Severe Unknown Verified 06/04/25 03:14 erythromycin base Allergy Severe Nausea Verified 06/04/25 03:14 lamotrigine (From Lamictal) Allergy Severe Rash Verified 06/04/25 03:14 piperacillin (From Zosyn) Allergy Severe feels Verified 06/04/25 03:14 sick/ cannot talk shellfish derived Allergy Severe Anaphylaxis Verified 06/04/25 03:14 tazobactam (From Zosyn) Allergy Severe feels Verified 06/04/25 03:14 sick/ cannot talk vancomycin Allergy Severe Rash Verified 06/04/25 03:14 ciprofloxacin (From Cipro) Allergy Intermediate Hives Verified 06/04/25 06:50 cefepime Allergy Anaphylaxis Verified 06/04/25 03:14 CORDYCEPS(FUNGI) Allergy Severe Unknown Uncoded 03/29/25 13:42 surgical silk tape Allergy Hives Uncoded 03/29/25 13:42 PFSH Active Problems All Active Problems Vitamin D deficiency (Chronic) CKD stage 3b, GFR 30-44 ml/min (Chronic) Abnormal mammogram of left breast (Acute) Hepatic hemangioma (Acute) Exercise induced bronchospasm (Chronic) Hydronephrosis, bilateral (Chronic) Pelvic pain in female (Acute) Presence of double-J stent (Chronic) Venous obstruction (Acute) Fatigue (Chronic) Macrocytic anemia (Chronic) Nephrostomy present (Chronic) Genital herpes, unspecified (Chronic) Urinary tract infection, recurrent (Chronic) Healthcare maintenance (Acute) Obstructive uropathy (Chronic) Cervical cancer, FIGO stage III (Chronic) Surgical History Surgical History History of insertion of nephrostomy tube bilateral bag placement 07/10 bilateral bag removal 11/11 Hx of hysterectomy excision for cervical cancer History of ureter stent bilaterally Family History Family History (Updated 12/04/24 @ 14:19 by Tess Ace MA) Mother Obesity Arthritis Father Alcoholism Sister Alcoholism CVA (cerebral vascular accident) Brother Arthritis Obesity Social History Social History Do you feel safe in your home environment?: Yes History of physical, verbal, emotional, or financial abuse?: No Are you sexually active?: No POLST Patient has POLST: No Exam Exam Vital Signs: Vital Signs x48h Temp Pulse Resp BP Pulse Ox 06/04/25 07:49 36.2 C L 69 14 112/72 97 06/04/25 05:16 73 16 106/73 99 06/04/25 03:10 35.9 C L 86 18 137/73 H 99 54-year-old female who is in no distress she does have a flattened affect denies current pain. Blood pressure is mildly elevated 137/73. Remainder of the vital signs are normal. Constitutional normal general appearance, no apparent distress, average body habitus, no limitations and alert HENMT normocephalic and head/scalp atraumatic Eyes PERRL and EOMs intact bilaterally Neck/C-Spine visual inspection normal and trachea midline Respiratory breath sounds equal bilaterally, normal respiratory effort and clear to auscultation bilaterally Cardiovascular normal heart rate noted, regular rhythm noted and no murmur Gastrointestinal abdomen normal to inspection, abdomen soft to palpation and nontender to palpation Genitourinary There is pain to the left costovertebral angle it is generalized and without guarding. Examination with POCUS shows mild hydro. 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 Psychiatry mental status grossly normal Skin skin color normal Results Vitals Vitals: Vital Signs - 24 hr 06/04/25 03:10 06/04/25 05:16 06/04/25 07:49 Temperature 35.9 C L 36.2 C L Temperature Source Temporal Artery Scan Temporal Artery Scan Pulse Rate 86 73 69 Respiratory Rate 18 16 14 Blood Pressure 137/73 H 106/73 112/72 O2 Saturation 99 99 97 O2 Source Room air Room air Room air Pain Intensity 0 0 Oxygen O2 Source Room air Labs Labs: Laboratory Tests 06/04/25 06/04/25 04:07 04:19 WBC 5.8 RBC 3.78 L Hgb 11.9 L Hct 36.0 L MCV 95.2 MCH 31.5 H MCHC 33.1 RDW 13.5 Plt Count 224 MPV 9.7 Neut # (Auto) 4.3 Lymph # (Auto) 0.8 L [place] # (Auto) 0.4 Eos # (Auto) 0.2 Baso # (Auto) 0.0 Absolute Nucleated RBC 0.00 Nucleated RBC % 0.0 Sodium 136 Potassium 4.1 Chloride 101 Carbon Dioxide 30 Anion Gap 5.0 L BUN 25 H Creatinine 1.5 H Estimated GFR (MDRD) 36 L Glucose 129 H Calcium 9.3 Total Bilirubin 0.2 AST 12 ALT 9 L Alkaline Phosphatase 86 Total Protein 6.6 Albumin 3.8 Globulin 2.8 Albumin/Globulin Ratio 1.4 Lipase 46 Urine Color YELLOW Urine Clarity SL. CLOUDY Urine pH 6.0 Ur Specific [place] 1.015 Urine Protein 30 H Urine Glucose (UA) NEGATIVE Urine Ketones NEGATIVE Urine Occult Blood TRACE-LYSED Urine Nitrite NEGATIVE Urine Bilirubin NEGATIVE Urine Urobilinogen 0.2 (NORMAL) Ur Leukocyte Esterase LARGE H Urine RBC 0-5 Urine WBC >25 H Urine WBC Clumps PRESENT Ur Squamous Epith Cells RARE Squamous Urine Bacteria Moderate H Ur Microscopic Review INDICATED Urine Culture Comments INDICATED PD Medical Decision Making ED course Complexity details: reviewed old records, reviewed results, re-evaluated patient, considered differential, d/w patient and d/w family Reviewed Lab Results: We reviewed complete blood count showing a normal white blood cell count of 5.8 the hemoglobin and hematocrit were depressed at 11.9 and 36.0 slightly less than what the patient has had over the past several months. She has previously run 12 8 and 39.1. Platelets are normal at 224,000 differential is unremarkable chemistries show normal electrolytes BUN is elevated 25 creatinine elevated at 1.5 these are similar values for the patient over the past several months. Liver function is normal urinalysis performed today shows protein trace lysed blood large leukocyte esterase and greater than 25 white blood cells per high- power field there is moderate bacteria in the specimen makes the grade for culture. I interpret these laboratory studies to indicate the patient has a degree of developing anemia and evidence of urinary tract infection. With the flank pain pyelonephritis is in the differential. ED course: Adriana Aponte with urostomy tubes bilaterally presents to our emergency department with decreased output from the left urostomy tube and pain in the left flank. She is eventually found to have infection and this specimen was taken from the right urostomy bag. The patient does have communication with urine from the bladder to both kidneys. She has a history of multiple allergies to antibiotic including cephalosporins erythromycin piperacillin tazobactam vancomycin Cipro and cefepime. She had previously been on Cipro and we used this agent today and found that she had some reaction with pain and discoloration of the veins the medication was being instilled into. At shift change a CT scan of the patient's abdomen and pelvis is pending and care is turned over to Dr. Armstrong. Discharge Plan Discharge Prescriptions: No Action epinephrine [EpiPen 2-Gabe] 0.3 mg/0.3 mL auto-injector 0.3 mg IM DIRECTED PRN Rx Instructions: For signs of severe allergic reaction, then call 911 vitamin B complex 1 cap PO .QD Print Language: Bengali Stand Alone Forms: PCP List
[2025-06-04 04:38] LABS: SQUAMOUS EPITHELIAL CELL,UR RARE Squamous (<= Few); WBC CLUMPS,URINE PRESENT
[2025-06-04] MEDS ORDERED: ONDANSETRON 4 MG/2 ML VIAL ONE (04:58)
[2025-06-04] MEDS: ONDANSETRON 4 MG/2 ML VIAL IVP STA (05:04)
[2025-06-04] MEDS: CIPROFLOXACIN 400 MG/200 ML 400 MG/200 ML BAG IV STA (05:05)
[2025-06-04] MEDS: SODIUM CHLORIDE 0.9% 1,000 ML IV STA (05:24)
--- NOTE | 2025-06-04 09:16 | ED Physician Documentation ---
ED Addendum Addendum Addendum: This patient was handed off to me at [address] Rojo. Briefly, this patient has a history of complicated urologic problems stemming from radiation due to cervical cancer treatment. Resultantly, she has bilateral nephrostomy tubes secondary to effects of radiation on her urologic system. She presented last night with pain, concerns about possible drainage from nephrostomy tube. Per Dr. Rojo she has been draining normally overnight, and when I evaluated patient she had drainage from both nephrostomy tubes. Overnight's labs were drawn which are notable for evidence of UTI. Overnight labs are drawn which were notable for evidence of UTI. She has a significant history of antibiotic allergy. She was treated with ciprofloxacin overnight but developed a rash so this was stopped. This morning there is presence of a 3 mm stone distal at the UVJ on her left side with presence of moderate hydronephrosis. I discussed her presentation with hospitalist team who agreed to admit her for treatment of septic stone. Patient agreeable with plan to be admitted. She was transferred to the floor during my shift with no further care is required apart from pain control during my shift. Discharge Plan Discharge Patient Disposition: [facility] DC/Xfer Condition: Good Clinical Impression: Hydronephrosis, Kidney stone, UTI (urinary tract infection) Interventions: ED Admission Assessment Last Done: 06/04/25 11:04 Vitals documented within 30 minutes of discharge?: Yes
--- NOTE | 2025-06-04 10:21 | HISTORY & PHYSICAL EXAMINATION ---
Chief Complaint Chief Complaint Chief Complaint: Abdominal Pain History of Present Illness Admitted From Admitted From:: ED History Obtained From History obtained from: Patient and Chart Review History of Present Illness HPI Comment/Other: History is obtained from the patient as well as record review. Limitations in history taking due to the patient's recent receipt of opiate narcotics and somnolence. 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 Her nephrostomy tubes were reportedly exchanged in March. She gets them exchanged every 3 months approximately. She has had a history of recurrent UTI with some concern for mounting resistance per her report. She is considering a cystectomy with [facility]. She is known to the urology service here. Her recurrent UTIs are further exacerbated by the fact that she has multiple antibiotic drug reactions. Notably cephalosporins have caused anaphylaxis. She does get a rash from both ciprofloxacin and vancomycin. There are mixed reports from the ED of whether she tolerated ciprofloxacin in the ED last night. She presented to the ED in December for admission with severe and acute onset flank pain that woke her from sleep. She reports that her bilateral nephrostomy tubes were patent initially, but the left nephrostomy tube was no longer draining. This was flushed in the ED and regained patency. It is draining at the time of our interview. Notably she had a 3 mm distal UVJ stone on the left with the presence of moderate hydronephrosis on CT scan. She has remained afebrile. She has no leukocytosis. Urine studies in the ED are suggestive of recurrent UTI. Cultures are pending. Patient reports that her flank pain has improved after narcotics. Meds/Allgy Home Medications Ambulatory Orders Medication Instructions Recorded Confirmed epinephrine 0.3 mg/0.3 mL 0.3 mg IM DIRECTED PRN 04/26/25 injection, auto-injector (EpiPen 2-Gabe) vitamin B complex 1 cap PO .QD 11/28/24 Allergies Allergies Allergy/AdvReac Type Severity Reaction Status Date / Time Cephalosporins Allergy Severe Anaphylaxis Verified 06/04/25 03:14 coconut Allergy Severe Unknown Verified 06/04/25 03:14 erythromycin base Allergy Severe Nausea Verified 06/04/25 03:14 lamotrigine (From Lamictal) Allergy Severe Rash Verified 06/04/25 03:14 piperacillin (From Zosyn) Allergy Severe feels Verified 06/04/25 03:14 sick/ cannot talk shellfish derived Allergy Severe Anaphylaxis Verified 06/04/25 03:14 tazobactam (From Zosyn) Allergy Severe feels Verified 06/04/25 03:14 sick/ cannot talk vancomycin Allergy Severe Rash Verified 06/04/25 03:14 ciprofloxacin (From Cipro) Allergy Intermediate Hives Verified 06/04/25 06:50 cefepime Allergy Anaphylaxis Verified 06/04/25 03:14 CORDYCEPS(FUNGI) Allergy Severe Unknown Uncoded 03/29/25 13:42 surgical silk tape Allergy Hives Uncoded 03/29/25 13:42 PFSH Active Problems All Active Problems (Updated 06/04/25 @ 14:40 by El Lee DO) Spasm of bladder (Acute 04/08/23) Dysuria (Acute 04/08/23) Obstructive pyelonephritis (Acute) UTI (urinary tract infection) (Acute) Kidney stone (Acute) Hydronephrosis (Acute) Vitamin D deficiency (Chronic) CKD stage 3b, GFR 30-44 ml/min (Chronic) Abnormal mammogram of left breast (Acute) Hepatic hemangioma (Acute) Exercise induced bronchospasm (Chronic) Hydronephrosis, bilateral (Chronic) Pelvic pain in female (Acute) Presence of double-J stent (Chronic) Venous obstruction (Acute) Fatigue (Chronic) Macrocytic anemia (Chronic) Nephrostomy present (Chronic) Genital herpes, unspecified (Chronic) Urinary tract infection, recurrent (Chronic) Healthcare maintenance (Acute) Obstructive uropathy (Chronic) Cervical cancer, FIGO stage III (Chronic) Surgical History Surgical History History of insertion of nephrostomy tube bilateral bag placement 07/10 bilateral bag removal 11/11 Hx of hysterectomy excision for cervical cancer History of ureter stent bilaterally Family History Family History Mother Obesity Arthritis Father Alcoholism Sister Alcoholism CVA (cerebral vascular accident) Brother Arthritis Obesity Social History Social History Smoking Status: Never smoker Level: Independent Do you feel safe in your home environment?: Yes History of physical, verbal, emotional, or financial abuse?: No Are you sexually active?: No POLST Patient has POLST: No POLST CPR Status: Attempt Resuscitation (CPR) Level of Medical Intervention: Full Treatment Review of Systems Status of ROS: 10 or more systems reviewed and unremarkable except as noted in history and below Exam Exam Vital Signs: Vital Signs x48h Temp Pulse Pulse Resp BP BP Pulse Ox 06/04/25 11:21 36.4 C L 60 18 123/87 99 06/04/25 09:52 36.1 C L 61 19 113/75 97 06/04/25 07:49 36.2 C L 69 14 112/72 97 GEN: No acute distress, somnolent. HEENT: NC/AT, normal appearance of external ears and nose. Hearing baseline. Cardiac: Regular rate and rhythm, no murmurs. Pulm: Lungs CTA bilaterally, no cough, no wheezes Abdomen: Soft, nontender, nondistended. No rebound or guarding : Bilateral percutaneous nephrostomy tubes present, draining Extremities: Moves all 4 extremities equally. Normal tone. Neuro: Face symmetric, CN II through XII intact grossly. Gait exam deferred Psych: Mood euthymic with congruent affect. Conclusion/Plan Problem List (1) Obstructive pyelonephritis: Plan: Presented with left flank pain. No output from her left nephrostomy tube. This was flushed in the ED, and is now patent and draining. Not septic on presentation. No fever. No leukocytosis. History of recurrent UTI. Concern for infected urine in the ED. She has evidence of hydronephrosis on CT. Recent urinary culture positive for E. coli sensitive to ceftriaxone, cefepime, Ancef, ertapenem and imipenem. Multiple antibiotic allergies as above * Will start Amoxicillin/clavulanate for now given clinical stability, consider broadening to penam if worsens. * Follow-up urine culture * CBC and BMP in AM * Consider early discontinuation of abx given clinical stability (2) Hydronephrosis: Plan: With a 3 mm obstructing stone in the distal UPJ. Patient would prefer to not have opiates. * Urology consulted * Will advance diet for today * Stone will likely pass on its own given its size and location * As needed Tylenol available, opiates as second line (3) CKD stage 3b, GFR 30-44 ml/min: Plan: Stable. Baseline creatinine around 1.4. 1.5 on admission. * Monitor BMP in a.m. (4) Nephrostomy present: Plan: In the setting of radiation related ureteral injury. Has bilateral percutaneous nephrostomy. Both are patent and draining, but the left was apparently obstructed on initial presentation. * Urology consult as above * Continue to monitor nephrostomy output (5) Cervical cancer, FIGO stage III: Plan: Stable. Status post treatment with chemotherapy and radiation. No concerns for advancement of disease. * Patient to follow-up with her specialist outpatient Lab Results Lab results reviewed: Yes 06/04/25 04:07 06/04/25 04:07 Diagnostic Imaging Results Diagnostic Imaging Results: positive Final report reviewed and Read independently Diagnostic Imaging Results Comments: As above. CT scan reveals hydronephrosis as well as a 3 mm urolith EKG Results EKG Interpreted Independently: Yes
[2025-06-04] MEDS: HYDROmorphone 0.5 MG/0.5 ML SYRINGE IVP PRN (10:45)
[2025-06-04] MEDS ORDERED: SODIUM CHLORIDE FLUSH 0.9% 10 ML SYRINGE IVP PRN (11:19)
[2025-06-04] MEDS ORDERED: oxyCODONE 5 MG TABLET PO PRN (11:19)
[2025-06-04] MEDS ORDERED: ONDANSETRON ODT 4 MG TABLET TL PRN (11:28)
[2025-06-04] MEDS: ONDANSETRON 4 MG/2 ML VIAL IVP PRN (11:39)
--- NOTE | 2025-06-04 12:49 | CT Report ---
PROCEDURE: CT Abdomen/Pelvis WO INDICATIONS: Left flank pain TECHNIQUE: A CT scan of the abdomen and pelvis was performed without the use of intravenous contrast. Images were recorded and evaluated at appropriate window settings. Reformats: coronal and sagittal. For radiation dose reduction, the following was used: automated exposure control, adjustment of mA and/or kV according to patient size. COMPARISON: 04/23/2024 FINDINGS: Image quality: Diagnostic. Lower chest: Unremarkable. Liver: No contour-deforming mass. Gallbladder: No radiopaque stones or wall thickening. Biliary tree: No intrahepatic or extrahepatic dilation, accounting for age. Spleen: No splenomegaly. Pancreas: No pancreatic ductal dilation. Adrenals: No adrenal nodule. Kidneys and ureters: Bilateral nephrostomy tubes remain in place. Left kidney is small and shrunken. There is minimal residual cortical tissue present. Moderate to severe left hydronephrosis has developed. There is now a 3 mm stone in the distal left ureter proximal to the left ureterovesical junction. It is present on image 120 of axial series 2. Right kidney has a nephrostomy in place with no hydronephrosis and no stones.. Stomach, bowel and peritoneum: No gastric or small bowel dilation. No abnormal wall thickening. No pathologic free fluid. Lymph nodes: No central or retroperitoneal adenopathy. Vessels: No infrarenal aortic aneurysm. Reproductive organs: Unremarkable. Bladder: No abnormal bladder wall thickening. No calcified bladder stones. Pelvic lymph nodes: No adenopathy by size criteria. Bones: No aggressive osseous abnormality. Other: No significant ventral or inguinal hernia. IMPRESSION: Bilateral nephrostomy tubes remain in place. The left kidney is small and shrunken. Development of severe left hydronephrosis and left hydroureter to the distal ureter above the ureterovesical junction where there is obstruction by 3 mm stone. The presence of hydronephrosis with a left nephrostomy place suggests malfunction of the left nephrostomy. Consider nephrostomy tube change. Findings are concordant with preliminary interpretation provided by [facility]. Reviewed by: Herberth Jack MD on 06/04/2025 9:46 AM PDT Approved by: Herberth Jack MD on 06/04/2025 9:46 AM PDT Station ID: [id number]
--- NOTE | 2025-06-04 16:18 | PHARMACY PROGRESS NOTE ---
Best Possible Medication History Admit Date and Time: 06/04/25 [id number] Home Medications Medication Instructions Recorded Confirmed Type epinephrine 0.3 mg/0.3 mL 0.3 mg IM DIRECTED PRN al lergic 11/28/24 06/04/25 History injection, auto-injector (EpiPen reaction 2-Gabe) vitamin B complex 1 cap PO DAILY 11/28/2405/20 History Processed by: Pharmacy Medications reviewed in ED?: Yes Medication History completed: Yes Patient Interview: Completed Secondary Source(s): Insurance records [facility] Statement: As the person ultimately responsible for medication therapy, providers are able to order a medication from an existing home medication list in [facility] via the "Reconcile Routine" prior to Confirmation of that medication by fire support specialist. Such practice is discouraged except when the physician, in their clinical judgment, deems that a medical need exists for a medication without regard to previous use.
[2025-06-04] MEDS: ACETAMINOPHEN 325 MG TABLET PO PRN (16:43)
[2025-06-04] MEDS: SODIUM CHLORIDE FLUSH 0.9% 10 ML SYRINGE IVP SCH (16:45)
--- NOTE | 2025-06-04 17:48 | CONSULTATION NOTE ---
Chief Complaint Chief Complaint Chief Complaint: left flank pain History of Present Illness Admitted From Admitted From:: ER History Obtained From Records Reviewed: EMR History of Present Illness HPI Comment/Other: Adriana is a 54-year-old woman well-known to me with a complex history pelvic cancer treated radiation therapy with resulting scarring of her ureters managed with bilateral nephrostomy tubes. She came today with worsening left sided flank pain and had a CT scan showing her nephrostomy tubes in good position however the left nephrostomy was not draining and she has a new small 3 mm distal left ureteral stone. PFSH Active Problems All Active Problems (Updated 06/04/25 @ 14:40 by El eLe DO) Spasm of bladder (Acute 04/08/23) Dysuria (Acute 04/08/23) Obstructive pyelonephritis (Acute) UTI (urinary tract infection) (Acute) Kidney stone (Acute) Hydronephrosis (Acute) Vitamin D deficiency (Chronic) CKD stage 3b, GFR 30-44 ml/min (Chronic) Abnormal mammogram of left breast (Acute) Hepatic hemangioma (Acute) Exercise induced bronchospasm (Chronic) Hydronephrosis, bilateral (Chronic) Pelvic pain in female (Acute) Presence of double-J stent (Chronic) Venous obstruction (Acute) Fatigue (Chronic) Macrocytic anemia (Chronic) Nephrostomy present (Chronic) Genital herpes, unspecified (Chronic) Urinary tract infection, recurrent (Chronic) Healthcare maintenance (Acute) Obstructive uropathy (Chronic) Cervical cancer, FIGO stage III (Chronic) Surgical History Surgical History History of insertion of nephrostomy tube bilateral bag placement 07/10 bilateral bag removal 11/11 Hx of hysterectomy excision for cervical cancer History of ureter stent bilaterally Family History Family History Mother Obesity Arthritis Father Alcoholism Sister Alcoholism CVA (cerebral vascular accident) Brother Arthritis Obesity Social History Social History (Updated 06/04/25 @ 15:07 by El Lee DO) Smoking Status: Never smoker Level: Independent Do you feel safe in your home environment?: Yes History of physical, verbal, emotional, or financial abuse?: No Are you sexually active?: No POLST Patient has POLST: No Meds/Allgy Home Medications Ambulatory Orders Medication Instructions Recorded Confirmed epinephrine 0.3 mg/0.3 mL 0.3 mg IM DIRECTED PRN al lergic 11/28/24 06/04/25 injection, auto-injector (EpiPen reaction 2-Gabe) vitamin B complex 1 cap PO DAILY 11/28/2405/20 Allergies Allergies Allergy/AdvReac Type Severity Reaction Status Date / Time Cephalosporins Allergy Severe Anaphylaxis Verified 06/04/25 03:14 coconut Allergy Severe Unknown Verified 06/04/25 03:14 erythromycin base Allergy Severe Nausea Verified 06/04/25 03:14 lamotrigine (From Lamictal) Allergy Severe Rash Verified 06/04/25 03:14 piperacillin (From Zosyn) Allergy Severe feels Verified 06/04/25 03:14 sick/ cannot talk shellfish derived Allergy Severe Anaphylaxis Verified 06/04/25 03:14 tazobactam (From Zosyn) Allergy Severe feels Verified 06/04/25 03:14 sick/ cannot talk vancomycin Allergy Severe Rash Verified 06/04/25 03:14 ciprofloxacin (From Cipro) Allergy Intermediate Hives Verified 06/04/25 06:50 cefepime Allergy Anaphylaxis Verified 06/04/25 03:14 CORDYCEPS(FUNGI) Allergy Severe Unknown Uncoded 03/29/25 13:42 surgical silk tape Allergy Hives Uncoded 03/29/25 13:42 Results Lab Results Lab results reviewed: Yes 06/04/25 04:07 06/04/25 04:07 Other Lab Results: Lab Results x24hrs 06/04/25 06/04/25 Range/Units 04:19 04:07 WBC 5.8 (4.8-10.8) x10^3/uL RBC 3.78 L (4.20-5.40) 10^6/uL Hgb 11.9 L (12.0-16.0) g/dL Hct 36.0 L (37.0-47.0) % MCV 95.2 (81.0-99.0) fL MCH 31.5 H (27.0-31.0) pg MCHC 33.1 (32.0-36.0) g/dL RDW 13.5 (12.0-15.0) % Plt Count 224 (130-450) 10^3/uL MPV 9.7 (7.9-10.8) fL Neut # (Auto) 4.3 (1.5-6.6) 10^3/uL Lymph # (Auto) 0.8 L (1.5-3.5) 10^3/uL [place] # (Auto) 0.4 (0.0-1.0) 10^3/uL Eos # (Auto) 0.2 (0.0-0.7) 10^3/uL Baso # (Auto) 0.0 (0.0-0.1) 10^3/uL Absolute Nucleated RBC 0.00 x10^3/uL Nucleated RBC % 0.0 /100WBC Sodium 136 (135-145) mmol/L Potassium 4.1 (3.5-4.5) mmol/L Chloride 101 (101-111) mmol/L Carbon Dioxide 30 (21-32) mmol/L Anion Gap 5.0 L (6-13) BUN 25 H (6-20) mg/dL Creatinine 1.5 H (0.6-1.3) mg/dL Estimated GFR (MDRD) 36 L (>89) Glucose 129 H (74-104) mg/dL Calcium 9.3 (8.5-10.3) mg/dL Total Bilirubin 0.2 (0.2-1.0) mg/dL AST 12 (10-42) IU/L ALT 9 L (10-60) IU/L Alkaline Phosphatase 86 (42-121) IU/L Total Protein 6.6 (6.4-8.9) g/dL Albumin 3.8 (3.2-5.5) g/dL Globulin 2.8 (2.1-4.2) g/dL Albumin/Globulin Ratio 1.4 (1.0-2.2) Lipase 46 (11-82) U/L Urine Color YELLOW Urine Clarity SL. CLOUDY (CLEAR) Urine pH 6.0 (5.0-7.5) PH Ur Specific [place] 1.015 (1.002-1.030) Urine Protein 30 H (NEGATIVE) mg/dL Urine Glucose (UA) NEGATIVE (NEGATIVE) mg/dL Urine Ketones NEGATIVE (NEGATIVE) mg/dL Urine Occult Blood TRACE-LYSED (NEGATIVE) Urine Nitrite NEGATIVE (NEGATIVE) Urine Bilirubin NEGATIVE (NEGATIVE) Urine Urobilinogen 0.2 (NORMAL) (NORMAL) E.U./dL Ur Leukocyte Esterase LARGE H (NEGATIVE) Urine RBC 0-5 (0-5) /HPF Urine WBC >25 H (0-5) /HPF Urine WBC Clumps PRESENT Ur Squamous Epith Cells RARE Squamous (<= Few) Urine Bacteria Moderate H (None Seen) /HPF Ur Microscopic Review INDICATED Urine Culture Comments INDICATED Exam Exam Vital Signs: Vital Signs x48h Temp Pulse Pulse Resp BP BP Pulse Ox 06/04/25 11:21 36.4 C L 60 18 123/87 99 06/04/25 09:52 36.1 C L 61 19 113/75 97 mild distress Conclusion/Plan Problem List (1) Obstructive pyelonephritis: Plan: using a 10cc syringe of saline I flushed the nephrostomy tube on the left and it began draining again well. I recommend she goes home tomorrow with nephrostomy tube in place. Her ureteral stone I will follow-up with over time as long as nephrostomy was draining it should not be a problem. It may pass on its own. Ultimately she can have ureteroscopy in the future by think is unnecessary at this moment in time. Home today with 10 cc flushes. She knows how to flush the nephrostomy tube and she can do this herself as needed. Lab Results Lab results reviewed: Yes 06/04/25 04:07 06/04/25 04:07
[2025-06-04] MEDS: SIMETHICONE CHEW 80 MG TABLET PO PRN (19:48)
[2025-06-04] MEDS: HEPARIN 5,000 UNIT/ML VIAL SUBQ SCH (20:33)
[2025-06-04] MEDS: AMOX/CLAV 500 MG/125 MG TABLET PO SCH (20:33)
[2025-06-04] MEDS ORDERED: CIPROFLOXACIN 250 MG TABLET PO SCH (21:00)
[2025-06-05 04:46] LABS: HCT - HEMATOCRIT 35.0 % (37.0-47.0); HGB - HEMOGLOBIN 11.9 g/dL (12.0-16.0); MEAN PLATELET VOLUME 10.1 fL (7.9-10.8); NRBC ABSOLUTE COUNT (AUTO) 0.00 x10^3/uL; NUCLEATED RED BLOOD CELLS AUTO 0.0 /100WBC; PLT - PLATELET COUNT 229 10^3/uL (130-450); RED CELL DISTRIBUTION WIDTH 13.4 % (12.0-15.0)
[2025-06-05 04:59] LABS: BUN - BLOOD UREA NITROGEN 20.0 mg/dL (6-20); CARBON DIOXIDE - CO2 27.0 mmol/L (21-32)
[2025-06-05 05:00] LABS: CREATININE 1.4 mg/dL (0.6-1.3); GFR - MDRD 39.0 (>89)
[2025-06-05] MEDS: DOCUSATE SODIUM 250 MG CAPSULE PO SCH (05:19)
--- NOTE | 2025-06-05 08:25 | Discharge Summary ---
"Discharge Summary Admit Date: 06/04/25 Discharge Date: 06/05/25 Discharging Provider: El Lee Primary Care Provider: Jeremy Garcia Code Status: Attempt Resuscitation DIAGNOSES Discharge Diagnoses with Status of Each Condition: Obstructive pyelonephritis, resolved Malfunction of nephrostomy tube, resolved Hydronephrosis, resolved Recurrent UTI, stable CKD stage IIIb, stable chronic HPI History of Present Illness: History is obtained from the patient as well as record review. Limitations in history taking due to the patient's recent receipt of opiate narcotics and somnolence. 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 Her nephrostomy tubes were reportedly exchanged in March. She gets them exchanged every 3 months approximately. She has had a history of recurrent UTI with some concern for mounting resistance per her report. She is considering a cystectomy with [facility]. She is known to the urology service here. Her recurrent UTIs are further exacerbated by the fact that she has multiple antibiotic drug reactions. Notably cephalosporins have caused anaphylaxis. She does get a rash from both ciprofloxacin and vancomycin. There are mixed reports from the ED of whether she tolerated ciprofloxacin in the ED last night. She presented to the ED in December for admission with severe and acute onset flank pain that woke her from sleep. She reports that her bilateral nephrostomy tubes were patent initially, but the left nephrostomy tube was no longer draining. This was flushed in the ED and regained patency. It is draining at the time of our interview. Notably she had a 3 mm distal UVJ stone on the left with the presence of moderate hydronephrosis on CT scan. She has remained afebrile. She has no leukocytosis. Urine studies in the ED are suggestive of recurrent UTI. Cultures are pending. Patient reports that her flank pain has improved after narcotics. CONSULTS | PROCEDURES Consultations: Urology, Erasmo Arias Procedures: CT abdomen with stone, hydronephrosis Flush of nephrostomy tube HOSPITAL COURSE Hospital Course: Patient presented with sudden onset flank pain and lack of discharge from her left percutaneous nephrostomy tube. She was seen in the ED, and had a flush of her nephrostomy tube which seemed to resolve initially the obstruction in the nephrostomy tube. Her urine was found to be infected, currently growing E. coli. She was started on Augmentin given her multiple antibiotic adverse drug reactions. She remained clinically stable without fever or white count. Will treat for 7 days. Sensitivity still pending, however she does have a recent drug-resistant E. coli. She may be colonized without active infection. She was seen by urology, who instructed her on how to flush her own nephrostomy tubes and encouraged her to do so regularly if needed. Patient gets weekly dressing changes here at the hospital, and will request for urology to put in the order to have flushes done with his dressing changes. She did have some constipation and abdominal discomfort related to that towards the end of her hospitalization. She received bowel meds without any active bowel movement. Discussed with her whether she wanted to stay until she had a bowel movement, and she wished to leave to continue care at home. She discharged in stable condition. Patient will follow-up with primary care doctor in the next 1 to 2 weeks to ensure ongoing recovery. She also will follow-up with urology as needed. ALLERGIES Allergies Allergy/AdvReac Type Severity Reaction Status Date / Time Cephalosporins Allergy Severe Anaphylaxis Verified 06/04/25 03:14 coconut Allergy Severe Unknown Verified 06/04/25 03:14 erythromycin base Allergy Severe Nausea Verified 06/04/25 03:14 lamotrigine (From Lamictal) Allergy Severe Rash Verified 06/04/25 03:14 piperacillin (From Zosyn) Allergy Severe feels Verified 06/04/25 03:14 sick/ cannot talk shellfish derived Allergy Severe Anaphylaxis Verified 06/04/25 03:14 tazobactam (From Zosyn) Allergy Severe feels Verified 06/04/25 03:14 sick/ cannot talk vancomycin Allergy Severe Rash Verified 06/04/25 03:14 ciprofloxacin (From Cipro) Allergy Intermediate Hives Verified 06/04/25 06:50 cefepime Allergy Anaphylaxis Verified 06/04/25 03:14 CORDYCEPS(FUNGI) Allergy Severe Unknown Uncoded 03/29/25 13:42 surgical silk tape Allergy Hives Uncoded 03/29/25 13:42 MEDICATIONS Ambulatory Orders Medication Instructions Recorded Confirmed epinephrine 0.3 mg/0.3 mL 0.3 mg IM DIRECTED PRN al lergic 11/28/24 06/04/25 injection, auto-injector (EpiPen reaction 2-Gabe) vitamin B complex 1 cap PO DAILY 11/28/2405/20 amoxicillin 500 mg-potassium 1 tab PO BID 5 days #10 t abs 06/05/25 clavulanate 125 mg tablet PHYSICAL EXAM AT DISCHARGE Vital Signs: Vital Signs x48h Temp Pulse Resp BP Pulse Ox 06/05/25 13:49 36.7 C 66 16 129/72 99 06/05/25 11:35 36.5 C 71 16 143/85 H 99 06/05/25 07:50 36.2 C L 61 16 113/70 98 GEN: No acute distress HEENT: NC/AT, normal appearance of external ears and nose. Hearing baseline. Cardiac: Regular rate and rhythm, no murmurs. Pulm: Lungs CTA bilaterally, no cough, no wheezes Abdomen: Soft, nontender, nondistended. No rebound or guarding : patent and draining BL perc nephrostomy tubes Extremities: Moves all 4 extremities equally. Normal tone. Neuro: Face symmetric, CN II through XII intact grossly. Psych: Mood euthymic with congruent affectt LABS 06/05/25 04:00 06/05/25 04:00 DIAGNOSTIC IMAGING Diagnostic Imaging Results: Final report reviewed TIME SPENT Time Spent in Discharge (Minutes): 44 Discharge Plan Discharge Patient Disposition: 01 Home, Self Care Condition: Good Medically Cleared Date:: 06/05/25 Prescriptions: New amoxicillin-pot clavulanate 500-125 mg Tablet 1 tab PO BID 5 Days Qty: 10 0RF Continued epinephrine [EpiPen 2-Gabe] 0.3 mg/0.3 mL auto-injector 0.3 mg IM DIRECTED PRN (Reason: allergic reaction) Rx Instructions: For signs of severe allergic reaction, then call 911 vitamin B complex 1 cap PO DAILY Diet: Regular Interventions: Belongings Inventory Last Done: 06/04/25 11:22 Discharge Last Done: 06/05/25 13:50 Discharge Checklist - Nursing Last Done: 06/05/25 13:31 Discharge Vital Signs (30 Minutes) Last Done: 06/05/25 13:49 Health Concerns: You were admitted for an unfortunate complication of your nephrostomy tubes. You have you have a small stone in the tube that comes from your kidney to your bladder. It is small and far along and that tract that I anticipate it may pass spontaneously. Urologist does not feel like you need any urgent procedures. However with the stone you additionally had obstruction of your left nephrostomy tube when you came into the hospital. This led to retention of fluid within your kidney and the pain that you are experiencing. With flushing, this was able to be resolved. It is now draining spontaneously. Because you had infection in your urine, we started you on antibiotic. You have infection in your bladder, sensitivities for the bacteria are still pending. Please follow-up with your primary care doctor within the next 1 to 2 weeks Follow-up with urologist as needed. Print Language: French Patient Instructions: Percutaneous Nephrostomy Dc Vitals documented within 30 minutes of discharge?: Yes (See DC VS)"
[2025-06-05 11:45] VITALS: O2SAT 99
[2025-06-05 13:50] VITALS: BP 129/72; TEMP 98.1
== END 2025-06-05 13:55 | disposition home or self-care (01) ==
LOC: ED 03:02 → MS3 03:02
PROVIDERS: ADMIT Student in an Organized Health Care Education/Training Program; ATTEND Student in an Organized Health Care Education/Training Program
DX: Z88.1 Allergy status to other antibiotic agents; N20.0 Calculus of kidney; B96.20 Unspecified Escherichia coli [E. coli] as the cause of diseases classified elsewhere; Z92.3 Personal history of irradiation; T83.092A Other mechanical complication of nephrostomy catheter, initial encounter; D64.9 Anemia, unspecified; N18.32 Chronic kidney disease, stage 3b; Z85.41 Personal history of malignant neoplasm of cervix uteri; N13.6 Pyonephrosis; K59.00 Constipation, unspecified